=== PATIENT | female | born 1985 | race Caucasian/White ===

== ENCOUNTER 2016-10-24 21:11 | Inpatient (IN) | payer BC ==
[2016-10-24] MEDS ORDERED: CALCIUM GLUCONATE 10% 1 GM/10 ML VIAL IV PUSH PRN (22:30)
[2016-10-24] MEDS ORDERED: SODIUM CHLORIDE 0.9% FLUSH 5 ML FLUSH IV PRN (22:30)
[2016-10-24] MEDS ORDERED: ZOLPIDEM TARTRATE 5 MG TAB PO PRN (22:30)
[2016-10-24] MEDS ORDERED: NIFEdipine 10 MG CAP PO PRN ×3 (22:30→23:15)
[2016-10-24] MEDS ORDERED: hydrALAZINE HCL 20 MG/ML VIAL IV PUSH PRN (22:30)
[2016-10-24] MEDS ORDERED: LABETALOL HCL 100 MG/20 ML VIAL IV PUSH PRN (22:30)
[2016-10-24 22:46] VITALS: BP 168/99; PULSE 89
--- NOTE | 2016-10-24 22:56 | HHI.HP ---
HPI Chief Complaint High blood pressure noted tonight when she went publics took her blood pressure Date Seen: Oct 24, 2016 Time Seen: 22:30 Travel History International Travel<30 Days: No Contact w/Intl Traveler<30Days: No Known Affected Area: No History of Present Illness HPI 31-year-old white female at 33 weeks with twins who sees Dr. Rai for care, she has had some blood pressure the last couple weeks in the office tonight went by [employer] and took her blood pressure was 190/120, here on OB ED blood pressures 160 / 90s she has no history of hypertension, although she does have a history of is type 1 diabetes for 20 years and is on insulin pump and checks her blood sugar dozen times a day or more our blood check here was to 238 and she says that her fastings are usually around 100. She has had a headache all day today and yesterday had visual changes with she describes a kaleidoscope in her vision that's not today she denies abdominal pain leakage of fluid or of bleeding, baby is are active, heart rate tracings are reactive and she is breana every 3-6 minutes but did not even realize that Weeks Gestation: 33 Para: 0 : 1 History Past Medical History Narrative Medical Insulin-dependent diabetes on an insulin pump Social History Alcohol Use: No Tobacco Use: No Substance Abuse: No Allergies-Medications (Allergen,Severity, Reaction): Uncoded Allergies: no knownallergy (Allergy, Unknown, 10/24/16) Review of Systems General / Constitutional: No: Fever, Weight Gain, Chills, Other Eyes: Visual changes, No: Diploplia, Blurred Vision, Pain, Photophobia HENT: Headaches, No: Vertigo, Lightheadedness Cardiovascular: No: Irregular Rhythm, Chest Pain or Discomfort, Palpitations, Tachycardia, Syncope, Varicosities, Edema, Cyanosis Respiratory: No: Cough, Short of Breath, Other Gastrointestinal: No: Nausea, Vomiting, Diarrhea Genitourinary: Discharge, No: Decreased Urinary Output, Oliguria Musculoskeletal: No: Limited ROM, Weakness, Cramping, Edema, Pain Skin: No Rash, No Itching, No Dryness, No Lumps, No Change in Pigmentation, No Change in Nails, No Alopecia, No Lesions Neurologic: No: Weakness, Dizziness, Syncope, Focal Abnormalities, Coordination Problem, Headache, Slurred Speech, Seizures Psychiatric: No: Depression, Suicidal Ideations, Homicidal Ideation Endocrine: No: Heat Intolerance, Cold Intolerance, Polydipsia, Polyuria, Other Physical Exam Narrative GENERAL: Well-nourished, well-developed patient. SKIN: Warm and dry. HEAD: Normocephalic and atraumatic. EYES: No scleral icterus. No injection or drainage. ENT: No nasal drainage noted. Mucous membranes pink. Airway patent. NECK: Supple, trachea midline. No JVD. CARDIOVASCULAR: Regular rate and rhythm without murmurs, gallops, or rubs. RESPIRATORY: Breath sounds equal bilaterally. No accessory muscle use. BREASTS: Bilateral exam showed no masses , no retractions, no nipple discharge. ABDOMEN/GI: Abdomen soft, non-tender, bowel sounds present, no rebound, no guarding Gravid to [40-] weeks size Fundal Height: [40 cm [she has twins-] GENITOURINARY: External Genitalia: intact and normal in appearance Speculum done tonight fibronectin done and is pending now she has a yellow purulent discharge at the cervix and posterior fornix wet prep is done which is also pending now Cervix: [Posterior with purulent. Discharge. Areola-] Dilatation: [Closed-] Effacement: [-] Thick Station: [-3] Presentation: [-] Patient states that both babies were head down recent ultrasound Membranes: [intact ] Uterine Contractions: [-q 3-6 min] FHT's: Category: [1-] Baseline: [133 /140-] Reactive: [yes-] Variability: [mod-] Decels: [none-] EXTREMITIES: No cyanosis 3+ pitting pretibial edema. BACK: Nontender without obvious deformity. No CVA tenderness. NEUROLOGICAL: Awake and alert. Motor and sensory grossly within normal limits. Five out of 5 muscle strength in all muscle groups. Normal speech. 3+ DTRs Caprini VTE Risk Assessment Caprini VTE Risk Assessment: No/Low Risk (score <= 1) Caprini Risk Assessment Model Point Value = 1 Point Value = 2 Point Value = 3 Point Value = 5 Age 41-60 Minor surgery BMI > 25 kg/m2 Swollen legs Varicose veins or History of unexplained or recurrent spontaneous Oral contraceptives or hormone replacement Sepsis (< 1 month) Serious lung disease, including pneumonia (< 1 month) Abnormal pulmonary function Acute myocardial infarction Congestive heart failure (< 1 month) History of inflammatory bowel disease Medical patient at bed rest Age 61-74 Arthroscopic surgery Major open surgery (> 45 min) Laparoscopic surgery (> 45 min) Malignancy Confined to bed (> 72 hours) Immobilizing plaster cast Central venous access Age >= 75 History of VTE Family history of VTE Factor V Leiden Prothrombin [id number] Lupus anticoagulant Anticardiolipin antibodies Elevated serum homocysteine Heparin-induced thrombocytopenia Other congenital or acquired thrombophilia Stroke (< 1 month) Elective arthroplasty Hip, pelvis, or leg fracture Acute spinal cord injury (< 1 month) Prophylaxis Regimen Total Risk Factor Score Risk Level Prophylaxis Regimen 0-1 Low Early ambulation 2 Moderate Order ONE of the following: *Sequential Compression Device (SCD) *Heparin 5000 units SQ BID 3-4 Higher Order ONE of the following medications: *Heparin 5000 units SQ TID *Enoxaparin/Lovenox 40 mg SQ daily (WT < 150 kg, CrCl > 30 mL/min) *Enoxaparin/Lovenox 30 mg SQ daily (WT < 150 kg, CrCl > 10-29 mL/min) *Enoxaparin/Lovenox 30 mg SQ BID (WT < 150 kg, CrCl > 30 mL/min) AND/OR *Sequential Compression Device (SCD) 5 or more Highest Order ONE of the following medications: *Heparin 5000 units SQ TID (Preferred with Epidurals) *Enoxaparin/Lovenox 40 mg SQ daily (WT < 150 kg, CrCl > 30 mL/min) *Enoxaparin/Lovenox 30 mg SQ daily (WT < 150 kg, CrCl > 10-29 mL/min) *Enoxaparin/Lovenox 30 mg SQ BID (WT < 150 kg, CrCl > 30 mL/min) AND *Sequential Compression Device (SCD) Data Data Orders Orders Admit To Inpatient (10/24/16 ) Vital Signs (Adult) Q5MX4,Q15MX4,Q30MX2,Q1H (10/24/16 22:24) Resp Pulse Oximetry (10/24/16 ) Activity Bed Rest (10/24/16 22:24) Intake + Output Q1H (10/24/16 22:24) Notify Parameters (10/24/16 22:24) Heart CONTINUOUS (10/24/16 22:24) Urinary Catheter Management BENJI.Q8H (10/24/16 22:24) ^ Check Deep Tendon Reflexes Q1H (10/24/16 22:24) Diet Liquid (10/25/16 Breakfast) Sodium Chloride 0.9% Flush (Ns Flush) (10/24/16 22:30) Sodium Chloride 0.9% Flush (Ns Flush) (10/25/16 09:00) Nifedipine (Procardia) (10/24/16 22:30) Nifedipine (Procardia) (10/24/16 22:45) Nifedipine (Procardia) (10/24/16 23:15) Labetalol Inj (Trandate Inj) (10/24/16 22:30) Hydralazine Inj (Apresoline Inj) (10/24/16 22:30) Betamethasone Inj (Celestone Soluspan In (10/24/16 22:30) Calcium Gluconate Inj (Calcium Gluconate (10/24/16 22:30) Acetaminophen (Tylenol) (10/24/16 22:30) Ondansetron Inj (Zofran Inj) (10/24/16 22:30) Zolpidem (Ambien) (10/24/16 22:30) Cbc No Diff, Includes Plts (10/24/16 22:24) Comprehensive Metabolic Panel (10/24/16 22:24) Uric Acid (10/24/16 22:24) Urinalysis - C+S If Indicated (10/24/16 22:24) Total Protein 24hr Urine (10/24/16 22:24) Creatinine 24 Hr Urine (10/24/16 22:24) Fentanyl Inj (Fentanyl Inj) (10/24/16 22:30) Assessment/Plan Assessment and Plan Patient is 31-year-old white female at 33 weeks twin gestation who presents with elevated blood pressures noted to the outside hospital today. Here on OB ED her blood pressures 160/90 consistently. She has no history of high blood pressure except for the last couple visits in the office, her urine dip shows 4+ protein 4+ glucose finger stick blood sugar 238. She is a type I diabetic on an insulin pump. She has 3+ pitting edema and 3+ DTRs, heart rates are reactive and she is breana every 3-6 minutes but doesn't feel them and is unaware of that. fibronectin done and is pending at this time wet prep same, she has a purulent cervicitis. Impression-33 week twin gestation with preeclampsia Type 1 diabetes is not well controlled Threatened labor with twin gestation Cervicitis Plan--admission to hospital for 24-hour urine protein, PIH lab, OB ultrasound, IM steroids betamethasone, antibiotics for cervicitis Tocolyse labor initially with IV fluid sedation but very likely will need of IV magnesium We will call and discuss case with her primary OB doctor Dr. Cecelia Casarez,Ishaan Falcon II, MD Oct 24, 2016 22:47
[2016-10-24] MEDS: BETAMETHASONE SOD PHOS/ACETATE SUSP 30 MG/5 ML VIAL IM SCH (23:43)
[2016-10-24 23:51] VITALS: BP 170/98; PULSE 85
[2016-10-25] VITALS (32 sets, daily range): BP systolic 133–176; BP diastolic 70–98; PULSE 78–111; RESP 16–18; TEMP 98–98.9
[2016-10-25] MEDS: ONDANSETRON HCL 4 MG/2 ML VIAL IV PRN (00:35)
[2016-10-25] MEDS ORDERED: NIFEdipine 10 MG CAP PO ONE (04:45)
[2016-10-25 05:20] LABS: HEMATOCRIT 39.9 % (35.0-46.0); MEAN CELL VOLUME 89.2 FL (80.0-100.0); MEAN CORPUSCULAR HGB CONC 33.6 % (32.0-36.0); PLATELET COUNT 214 TH/MM3 (150-450); RED BLOOD COUNT 4.48 MIL/MM3 (4.00-5.30); RED CELL DISTRIBUTION WIDTH 13.2 % (11.6-17.2); REVIEW FLAG FINAL; WHITE BLOOD COUNT 9.4 TH/MM3 (4.0-11.0)
[2016-10-25 06:39] LABS: BACTERIA, URINE RARE /hpf; BLOOD, URINE SMALL (NEG); COMMENT (UR) CULTURE INDICATED; CULTURE IF INDICATED CULTURE INDICATED; GLUCOSE,URINE 1000 mg/dL (NEG); HYALINE CAST, URINE 20 /lpf (RARE); KETONE, URINE NEG (NEG); MUCUS URINE FEW /lpf (OCC); NITRITE,URINE NEG (NEG); PH, URINE 6.5 (5.0-8.5); SQUAMOUS EPITHELIAL CELL URINE 1 /hpf (0-5); URINE COLOR YELLOW (YELLW/STRAW)
[2016-10-25 06:54] LABS: BLOOD UREA NITROGEN 22 MG/DL (7-18); GLOMERULAR FILTRATION RATE 79 ML/MIN (>89); URIC ACID 7.6 MG/DL (2.6-6.0)
[2016-10-25 06:55] LABS: ALKALINE PHOSPHATASE 218 U/L (45-117); ALT (GPT) 33 U/L (10-53); ANION GAP 11 MEQ/L (5-15); AST (GOT) 37 U/L (15-37); BICARBONATE 20.2 MEQ/L (21.0-32.0); CHLORIDE 105 MEQ/L (98-107); POTASSIUM 4.1 MEQ/L (3.5-5.1); SODIUM (NA) 136 MEQ/L (136-145); TOTAL BILIRUBIN ADULT 0.3 MG/DL (0.2-1.0)
--- NOTE | 2016-10-25 08:08 | HHI.HP ---
HPI Chief Complaint headache and hypertension Date Seen: Oct 24, 2016 Time Seen: 23:59 Travel History International Travel<30 Days: No Contact w/Intl Traveler<30Days: No Known Affected Area: No History of Present Illness HPI doing well at 33 weeks with Hypertension. She had BP x2 of 170/90. she had headache. She has had some visual change with spots worse today. Weeks Gestation: 33 Para: 0 : 1 History Past Medical History Narrative Medical diabetic since 12 yo on insulin pump Medical History: Denies Significant Hx Past Surgical History Surgical History: No Previous Surgery Family History Family History: Negative Social History Alcohol Use: No Tobacco Use: No Substance Abuse: No Allergies-Medications (Allergen,Severity, Reaction): Coded Allergies: No Known Allergies (Unverified , 10/24/16) Narrative Medication insulin Review of Systems Except as stated in HPI: all other systems reviewed are Neg Physical Exam Vital Signs Date Time Temp Pulse Resp B/P (MAP) Pulse Ox O2 Delivery O2 Flow Rate FiO2 10/25/16 07:45 18 10/25/16 07:32 86 141/85 (103) 10/25/16 06:30 84 147/73 (97) 10/25/16 06:15 98.9 18 10/25/16 06:00 83 145/79 (101) 10/25/16 05:45 18 10/25/16 05:30 83 154/80 (104) 10/25/16 05:12 18 10/25/16 05:00 80 153/83 (106) 10/25/16 04:45 18 10/25/16 04:30 87 140/75 (96) 10/25/16 04:00 79 133/70 (91) 10/25/16 03:30 82 134/72 (92) 10/25/16 03:00 89 141/77 (98) 10/25/16 02:30 85 144/74 (97) 10/25/16 02:00 91 155/89 (111) 10/25/16 01:30 95 163/90 (114) 10/25/16 01:23 97 161/80 (107) 10/25/16 01:00 105 174/96 (122) 10/25/16 00:30 87 156/93 (114) 10/25/16 00:24 99 165/98 (120) 10/25/16 00:14 111 169/93 (118) 10/25/16 00:00 78 170/90 (116) 10/24/16 23:51 85 170/98 (122) 10/24/16 22:46 89 168/99 (122) Narrative GENERAL: Well-nourished, well-developed patient. SKIN: Warm and dry. HEAD: Normocephalic and atraumatic.. NECK: Supple, trachea midline. No JVD. CARDIOVASCULAR: Regular rate and rhythm without murmurs, gallops, or rubs. RESPIRATORY: Breath sounds equal bilaterally. No accessory muscle use. BREASTS: Bilateral exam showed no masses , no retractions, no nipple discharge. ABDOMEN/GI: Abdomen soft, non-tender, bowel sounds present, no rebound, no guarding Gravid to 40 weeks size Fundal Height: [-] GENITOURINARY: External Genitalia: intact and normal in appearance BUS glands: [-] Cervix: Closed Dilatation: [-] Effacement: [-] Station: [-] Presentation: [-] Membranes: [intact or ruptured] Uterine Contractions: [-] FHT's: Category: 1 Baseline: [-] Reactive: [-] Variability: [-] Decels: [-] EXTREMITIES: No cyanosis or edema. BACK: Nontender without obvious deformity. No CVA tenderness. NEUROLOGICAL: Awake and alert. Motor and sensory grossly within normal limits. Five out of 5 muscle strength in all muscle groups. Normal speech. Caprini VTE Risk Assessment Caprini VTE Risk Assessment: No/Low Risk (score <= 1) Caprini Risk Assessment Model Point Value = 1 Point Value = 2 Point Value = 3 Point Value = 5 Age 41-60 Minor surgery BMI > 25 kg/m2 Swollen legs Varicose veins or History of unexplained or recurrent spontaneous Oral contraceptives or hormone replacement Sepsis (< 1 month) Serious lung disease, including pneumonia (< 1 month) Abnormal pulmonary function Acute myocardial infarction Congestive heart failure (< 1 month) History of inflammatory bowel disease Medical patient at bed rest Age 61-74 Arthroscopic surgery Major open surgery (> 45 min) Laparoscopic surgery (> 45 min) Malignancy Confined to bed (> 72 hours) Immobilizing plaster cast Central venous access Age >= 75 History of VTE Family history of VTE Factor V Leiden Prothrombin [id number] Lupus anticoagulant Anticardiolipin antibodies Elevated serum homocysteine Heparin-induced thrombocytopenia Other congenital or acquired thrombophilia Stroke (< 1 month) Elective arthroplasty Hip, pelvis, or leg fracture Acute spinal cord injury (< 1 month) Prophylaxis Regimen Total Risk Factor Score Risk Level Prophylaxis Regimen 0-1 Low Early ambulation 2 Moderate Order ONE of the following: *Sequential Compression Device (SCD) *Heparin 5000 units SQ BID 3-4 Higher Order ONE of the following medications: *Heparin 5000 units SQ TID *Enoxaparin/Lovenox 40 mg SQ daily (WT < 150 kg, CrCl > 30 mL/min) *Enoxaparin/Lovenox 30 mg SQ daily (WT < 150 kg, CrCl > 10-29 mL/min) *Enoxaparin/Lovenox 30 mg SQ BID (WT < 150 kg, CrCl > 30 mL/min) AND/OR *Sequential Compression Device (SCD) 5 or more Highest Order ONE of the following medications: *Heparin 5000 units SQ TID (Preferred with Epidurals) *Enoxaparin/Lovenox 40 mg SQ daily (WT < 150 kg, CrCl > 30 mL/min) *Enoxaparin/Lovenox 30 mg SQ daily (WT < 150 kg, CrCl > 10-29 mL/min) *Enoxaparin/Lovenox 30 mg SQ BID (WT < 150 kg, CrCl > 30 mL/min) AND *Sequential Compression Device (SCD) Data Data Vital Signs Reviewed: Yes Orders Orders Admit To Inpatient (10/24/16 ) Vital Signs (Adult) Q5MX4,Q15MX4,Q30MX2,Q1H (10/24/16 22:24) Resp Pulse Oximetry (10/24/16 ) Activity Bed Rest (10/24/16 22:24) Intake + Output Q1H (10/24/16 22:24) Notify Parameters (10/24/16 22:24) Heart CONTINUOUS (10/24/16 22:24) Urinary Catheter Management BENJI.Q8H (10/24/16 22:24) ^ Check Deep Tendon Reflexes Q1H (10/24/16 22:24) Sodium Chloride 0.9% Flush (Ns Flush) (10/24/16 22:30) Sodium Chloride 0.9% Flush (Ns Flush) (10/25/16 09:00) Nifedipine (Procardia) (10/24/16 22:30) Nifedipine (Procardia) (10/24/16 22:45) Nifedipine (Procardia) (10/24/16 23:15) Labetalol Inj (Trandate Inj) (10/24/16 22:30) Hydralazine Inj (Apresoline Inj) (10/24/16 22:30) Betamethasone Inj (Celestone Soluspan In (10/24/16 22:30) Calcium Gluconate Inj (Calcium Gluconate (10/24/16 22:30) Acetaminophen (Tylenol) (10/24/16 22:30) Ondansetron Inj (Zofran Inj) (10/24/16 22:30) Zolpidem (Ambien) (10/24/16 22:30) Cbc No Diff, Includes Plts (10/24/16 22:24) Comprehensive Metabolic Panel (10/24/16 22:24) Uric Acid (10/24/16 22:24) Urinalysis - C+S If Indicated (10/24/16 22:24) Total Protein 24hr Urine (10/24/16 22:24) Creatinine 24 Hr Urine (10/24/16 22:24) Fentanyl Inj (Fentanyl Inj) (10/24/16 22:30) Ob (2e) Additional Admit Info (10/24/16 22:32) Nifedipine (Procardia) (10/25/16 04:45) Wet Prep Profile (10/25/16 23:05) Fibronectin (10/24/16 23:05) Type And Screen (10/25/16 23:05) Urine Culture (10/24/16 22:00) Diet Regular Basic (10/25/16 Breakfast) Labs Laboratory Tests Test 10/24/16 22:00 10/24/16 23:05 10/24/16 23:35 Urine Color YELLOW Urine Turbidity CLEAR Urine pH 6.5 Urine Specific [place] 1.023 Urine Protein GREATER THAN 600 Urine Glucose (UA) 1000 Urine Ketones NEG Urine Occult Blood SMALL Urine Nitrite NEG Urine Bilirubin NEG Urine Urobilinogen LESS THAN 2.0 Urine Leukocyte Esterase NEG Urine RBC 1 Urine WBC 8 Urine Squamous Epithelial Cells 1 Urine Bacteria RARE Urine Hyaline Casts 20 Urine Mucus FEW Microscopic Urinalysis Comment CULTURE INDICATED White Blood Count 9.4 Red Blood Count 4.48 Hemoglobin 13.4 Hematocrit 39.9 Mean Corpuscular Volume 89.2 Mean Corpuscular Hemoglobin 30.0 Mean Corpuscular Hemoglobin Concent 33.6 Red Cell Distribution Width 13.2 Platelet Count 214 Mean Platelet Volume 10.5 Fibronectin POSITIVE Blood Urea Nitrogen 22 Creatinine 0.85 Random Glucose 215 Total Protein 6.1 Albumin 2.0 Calcium Level 8.1 Uric Acid 7.6 Alkaline Phosphatase 218 Aspartate Amino Transf (AST/SGOT) 37 Alanine Aminotransferase (ALT/SGPT) 33 Total Bilirubin 0.3 Sodium Level 136 Potassium Level 4.1 Chloride Level 105 Carbon Dioxide Level 20.2 Anion Gap 11 Estimat Glomerular Filtration Rate 79 Date/Time Source Procedure Growth Status 10/24/16 22:00 Urine Clean Catch Urine Culture Pending Received Assessment/Plan Problem List: (1) 33 weeks gestation of ICD Codes: Z3A.33 - 33 weeks gestation of (2) Dichorionic diamniotic twin gestation ICD Codes: O30.049 - Twin , dichorionic/diamniotic, unspecified trimester (3) Hypertension affecting in third trimester ICD Codes: O16.3 - Unspecified maternal hypertension, third trimester Assessment and Plan Patient is 31-year-old white female at 33 weeks twin gestation who presents with elevated blood pressures noted to the outside hospital today. Here on OB ED her blood pressures 160/90 consistently. She has no history of high blood pressure except for the last couple visits in the office, her urine dip shows 4+ protein 4+ glucose finger stick blood sugar 238. She is a type I diabetic on an insulin pump. She has 3+ pitting edema and 3+ DTRs, heart rates are reactive and she is breana every 3-6 minutes but doesn't feel them and is unaware of that. fibronectin done and is pending at this time wet prep same, she has a purulent cervicitis. Impression-33 week twin gestation with preeclampsia Type 1 diabetes is not well controlled Threatened labor with twin gestation Cervicitis Plan--admission to hospital for 24-hour urine protein, PIH lab, OB ultrasound, IM steroids betamethasone, antibiotics for cervicitis Tocolyse labor initially with IV fluid sedation but very likely will need of IV magnesium We will call and discuss case with her primary OB doctor Dr. Cecelia Amador,Tacho Vora MD Oct 25, 2016 08:08
--- NOTE | 2016-10-25 08:15 | PD.OB.ANTE ---
Subjective Diagnosis: (1) 33 weeks gestation of Diagnosis: Principal (2) Dichorionic diamniotic twin gestation (3) Hypertension affecting in third trimester Diagnosis: Principal (4) Diabetes mellitus Objective Vital Signs Vital Signs Date Time Temp Pulse Resp B/P (MAP) Pulse Ox O2 Delivery O2 Flow Rate FiO2 10/25/16 07:45 18 10/25/16 07:32 86 141/85 (103) 10/25/16 06:30 84 147/73 (97) 10/25/16 06:15 98.9 18 10/25/16 06:00 83 145/79 (101) 10/25/16 05:45 18 10/25/16 05:30 83 154/80 (104) 10/25/16 05:12 18 10/25/16 05:00 80 153/83 (106) 10/25/16 04:45 18 10/25/16 04:30 87 140/75 (96) 10/25/16 04:00 79 133/70 (91) 10/25/16 03:30 82 134/72 (92) 10/25/16 03:00 89 141/77 (98) 10/25/16 02:30 85 144/74 (97) 10/25/16 02:00 91 155/89 (111) 10/25/16 01:30 95 163/90 (114) 10/25/16 01:23 97 161/80 (107) 10/25/16 01:00 105 174/96 (122) 10/25/16 00:30 87 156/93 (114) 10/25/16 00:24 99 165/98 (120) 10/25/16 00:14 111 169/93 (118) 10/25/16 00:00 78 170/90 (116) 10/24/16 23:51 85 170/98 (122) 10/24/16 22:46 89 168/99 (122) Lab & Micro Results Test 10/24/16 22:00 10/24/16 23:05 10/24/16 23:35 Urine Color YELLOW Urine Turbidity CLEAR Urine pH 6.5 Urine Specific [place] 1.023 Urine Protein GREATER THAN 600 mg/dL Urine Glucose (UA) 1000 mg/dL Urine Ketones NEG mg/dL Urine Occult Blood SMALL Urine Nitrite NEG Urine Bilirubin NEG Urine Urobilinogen LESS THAN 2.0 MG/DL Urine Leukocyte Esterase NEG Urine RBC 1 /hpf Urine WBC 8 /hpf Urine Squamous Epithelial Cells 1 /hpf Urine Bacteria RARE /hpf Urine Hyaline Casts 20 /lpf Urine Mucus FEW /lpf Microscopic Urinalysis Comment CULTURE INDICATED White Blood Count 9.4 TH/MM3 Red Blood Count 4.48 MIL/MM3 Hemoglobin 13.4 GM/DL Hematocrit 39.9 % Mean Corpuscular Volume 89.2 FL Mean Corpuscular Hemoglobin 30.0 PG Mean Corpuscular Hemoglobin Concent 33.6 % Red Cell Distribution Width 13.2 % Platelet Count 214 TH/MM3 Mean Platelet Volume 10.5 FL Fibronectin POSITIVE Blood Urea Nitrogen 22 MG/DL Creatinine 0.85 MG/DL Random Glucose 215 MG/DL Total Protein 6.1 GM/DL Albumin 2.0 GM/DL Calcium Level 8.1 MG/DL Uric Acid 7.6 MG/DL Alkaline Phosphatase 218 U/L Aspartate Amino Transf (AST/SGOT) 37 U/L Alanine Aminotransferase (ALT/SGPT) 33 U/L Total Bilirubin 0.3 MG/DL Sodium Level 136 MEQ/L Potassium Level 4.1 MEQ/L Chloride Level 105 MEQ/L Carbon Dioxide Level 20.2 MEQ/L Anion Gap 11 MEQ/L Estimat Glomerular Filtration Rate 79 ML/MIN Date/Time Source Procedure Growth Status 10/24/16 22:00 Urine Clean Catch Urine Culture Pending Received Physical Exam GENERAL: Well-nourished, well-developed patient. CARDIOVASCULAR: Regular rate and rhythm without murmurs, gallops, or rubs. RESPIRATORY: Breath sounds equal bilaterally. No accessory muscle use. ABDOMEN/GI: Abdomen soft, non-tender. Fundus: [-] GENITOURINARY: External Genitalia: intact and normal in appearance Cervix: [-] Dilatation: cl Effacement: [-] Station: vtx Presentation: [-] Membranes: intact Uterine Contractions: [-] FHT's: Category: 1 Baseline: [-] Reactive: [-] Variability: [-] Decels: [-] EXTREMITIES: No cyanosis or edema, non-tender, without signs of DVT. Assessment and Plan Problem List: (1) 33 weeks gestation of ICD Codes: Z3A.33 - 33 weeks gestation of (2) Dichorionic diamniotic twin gestation ICD Codes: O30.049 - Twin , dichorionic/diamniotic, unspecified trimester (3) Hypertension affecting in third trimester ICD Codes: O16.3 - Unspecified maternal hypertension, third trimester Assessment and Plan Patient is 31-year-old white female at 33 weeks twin gestation who presents with elevated blood pressures noted to the outside hospital today. Here on OB ED her blood pressures 160/90 consistently. She has no history of high blood pressure except for the last couple visits in the office, her urine dip shows 4+ protein 4+ glucose finger stick blood sugar 238. She is a type I diabetic on an insulin pump. She has 3+ pitting edema and 3+ DTRs, heart rates are reactive and she is breana every 3-6 minutes but doesn't feel them and is unaware of that. fibronectin done and is pending at this time wet prep same, she has a purulent cervicitis. Impression-33 week twin gestation with preeclampsia Type 1 diabetes is not well controlled Threatened labor with twin gestation Cervicitis Plan--admission to hospital for 24-hour urine protein, PIH lab, OB ultrasound, IM steroids betamethasone, antibiotics for cervicitis Tocolyse labor initially with IV fluid sedation but very likely will need of IV magnesium We will call and discuss case with her primary OB doctor Dr. Cecelia Amador,Tacho Vora MD Oct 25, 2016 08:15
[2016-10-25] MEDS: SODIUM CHLORIDE 0.9% FLUSH 5 ML FLUSH IV SCH ×2 (09:00→21:00)
[2016-10-25] MEDS: ACETAMINOPHEN 325 MG TAB PO PRN ×2 (09:41→17:21)
[2016-10-25 23:00] LABS: CREAT 24 TIMED 208.7 MG/DL
[2016-10-25] MEDS: BETAMETHASONE SOD PHOS/ACETATE SUSP 30 MG/5 ML VIAL IM SCH (23:45)
[2016-10-26] VITALS (201 sets, daily range): BP systolic 125–182; BP diastolic 68–102; PULSE 85–140; RESP 16–20; TEMP 97.9–98.7; O2SAT 95–99
[2016-10-26] MEDS ORDERED: MAGNESIUM HYDROXIDE SUSP 30 ML CUP PO ONE (00:30)
[2016-10-26] MEDS ORDERED: CALCIUM GLUCONATE 10% 1 GM/10 ML VIAL IV PRN (00:30)
[2016-10-26] MEDS ORDERED: LACTATED RINGER'S 1000 ML INJ 1,000 ML IV SCH (00:30)
[2016-10-26] MEDS ORDERED: LIDOCAINE 2% JELLY 30 ML TUBE ONE (00:32)
[2016-10-26] MEDS: MAGNESIUM SULFATE 40 GM PREMIX 1,000 ML IV SCH ×2 (00:45→21:50)
--- NOTE | 2016-10-26 06:32 | PD.OB.ANTE ---
Subjective Diagnosis: (1) 33 weeks gestation of Diagnosis: Principal (2) Dichorionic diamniotic twin gestation (3) Hypertension affecting in third trimester Diagnosis: Principal (4) Diabetes mellitus (5) Severe pre-eclampsia complicating childbirth Objective Vital Signs Vital Signs Date Time Temp Pulse Resp B/P (MAP) Pulse Ox O2 Delivery O2 Flow Rate FiO2 10/26/16 06:05 86 10/26/16 06:01 18 10/26/16 06:00 87 10/26/16 06:00 91 154/79 (104) 10/26/16 05:12 16 10/26/16 05:00 89 10/26/16 05:00 87 151/83 (105) 10/26/16 04:08 16 10/26/16 04:05 102 10/26/16 04:00 103 10/26/16 04:00 94 159/89 (112) 10/26/16 03:03 16 10/26/16 03:00 96 165/73 (103) 10/26/16 03:00 94 10/26/16 02:19 16 10/26/16 02:10 95 10/26/16 02:05 113 10/26/16 02:00 95 10/26/16 02:00 96 161/86 (111) 10/26/16 01:24 16 10/26/16 01:00 100 165/98 (120) 10/26/16 01:00 97.9 10/26/16 01:00 18 10/26/16 00:57 112 162/85 (110) 10/25/16 21:51 18 10/25/16 21:36 91 154/76 (102) 10/25/16 20:56 98.2 10/25/16 20:00 18 10/25/16 20:00 98.0 10/25/16 19:29 91 156/90 (112) 10/25/16 15:56 99 156/72 (100) 10/25/16 15:51 18 10/25/16 15:50 94 176/95 (122) 10/25/16 15:20 18 10/25/16 11:51 94 16 140/71 (94) 10/25/16 07:45 18 10/25/16 07:32 86 141/85 (103) 9/15/17 06:30 84 147/73 (97) Lab & Micro Results Test 10/25/16 21:30 Urine Total Volume 24 Hours 525 ML Urine Creatinine 24 Hour 1.09 GM/24HR Urine Total Protein 24 Hour 6085 MG/24HR Date/Time Source Procedure Growth Status 10/24/16 22:00 Urine Clean Catch Urine Culture Pending Received Physical Exam GENERAL: Well-nourished, well-developed patient. CARDIOVASCULAR: Regular rate and rhythm without murmurs, gallops, or rubs. RESPIRATORY: Breath sounds equal bilaterally. No accessory muscle use. ABDOMEN/GI: Abdomen soft, non-tender. Fundus: [-] GENITOURINARY: External Genitalia: intact and normal in appearance Cervix: [-] Dilatation: 1 Effacement: [-] Station: [-] Presentation: [-] Membranes: [-] Uterine Contractions: [-] FHT's: Category: 1 Baseline: [-] Reactive: [-] Variability: [-] Decels: [-] EXTREMITIES: No cyanosis or edema, non-tender, without signs of DVT. Assessment and Plan Problem List: (1) 33 weeks gestation of ICD Codes: Z3A.33 - 33 weeks gestation of (2) Dichorionic diamniotic twin gestation ICD Codes: O30.049 - Twin , dichorionic/diamniotic, unspecified trimester (3) Hypertension affecting in third trimester ICD Codes: O16.3 - Unspecified maternal hypertension, third trimester (4) Diabetes mellitus ICD Codes: E11.9 - Type 2 diabetes mellitus without complications Qualifiers: Assessment and Plan Patient is 31-year-old white female at 33 weeks twin gestation who presents with elevated blood pressures noted to the outside hospital today. Here on OB ED her blood pressures 160/90 consistently. She has no history of high blood pressure except for the last couple visits in the office, her urine dip shows 4+ protein 4+ glucose finger stick blood sugar 238. She is a type I diabetic on an insulin pump. She has 3+ pitting edema and 3+ DTRs, heart rates are reactive and she is breana every 3-6 minutes but doesn't feel them and is unaware of that. fibronectin done and is pending at this time wet prep same, she has a purulent cervicitis. Impression-33 week twin gestation with preeclampsia Type 1 diabetes is not well controlled Threatened labor with twin gestation Cervicitis Patient has 24 hour protein of 6000 with severe preclampsia and needs delivery. Twins are VTX/VTX and has been offered CS or induction Tacho Amador MD Oct 26, 2016 06:32
[2016-10-26 07:18] LABS: AUTOMATED NEUTROPHIL # 11.2 TH/MM3 (1.8-7.7); BASOPHIL % 0.2 % (0.0-2.0); HEMATOCRIT 42.7 % (35.0-46.0); LYMPH % 15.5 % (9.0-44.0); LYMPHOCYTE # 2.1 TH/MM3 (1.0-4.8); MEAN CELL VOLUME 89.3 FL (80.0-100.0); MEAN CORPUSCULAR HEMOGLOBIN 29.5 PG (27.0-34.0); MONO % 2.8 % (0.0-8.0); NEUT % 81.5 % (16.0-70.0); PLATELET COUNT 224 TH/MM3 (150-450); RED BLOOD COUNT 4.79 MIL/MM3 (4.00-5.30); RED CELL DISTRIBUTION WIDTH 13.4 % (11.6-17.2); WHITE BLOOD COUNT 13.8 TH/MM3 (4.0-11.0)
[2016-10-26 07:28] LABS: HEMO FLAGS AUTO DIFF
[2016-10-26 07:39] LABS: ANION GAP 13 MEQ/L (5-15); AST (GOT) 49 U/L (15-37); BICARBONATE 17.7 MEQ/L (21.0-32.0); BLOOD UREA NITROGEN 22 MG/DL (7-18); CHLORIDE 102 MEQ/L (98-107); GLOMERULAR FILTRATION RATE 75 ML/MIN (>89); POTASSIUM 4.3 MEQ/L (3.5-5.1); SODIUM (NA) 133 MEQ/L (136-145)
[2016-10-26 07:40] LABS: ALT (GPT) 39 U/L (10-53)
[2016-10-26 07:42] LABS: ALKALINE PHOSPHATASE 217 U/L (45-117); TOTAL BILIRUBIN ADULT 0.3 MG/DL (0.2-1.0)
[2016-10-26] MEDS: SODIUM CHLORIDE 0.9% FLUSH 5 ML FLUSH IV SCH (08:41)
[2016-10-26] MEDS ORDERED: NIFEdipine 10 MG CAP ONE ×2 (08:53→19:21)
[2016-10-26 09:01] LABS: SCAN/DIFF AUTO DIFF CONFIRMED
--- NOTE | 2016-10-26 09:26 | HHI.PR ---
Addendum to Inpatient Note Addendum Reason: Additional Documentation Additional Information Consult Maternal Hx: 31 y/o, G 1 P 0 , female at 33.3weeks gestation with diagnosis of PIH, Pre- Eclampsia, Type 1 Diabetes, Cervicitis Mother admitted to L & D secondary to increased blood pressure Maternal Medications: PNV, Iron, Antibiotics, Magnesium Sulfate Betamethasone 10/24 and 10/25 Social: Marital status: Resides locally Family Hx: Mother reports no genetic or inherited conditions. Substance Abuse: Denies Discussion: Nurse Practitioner met with mother and father regarding threatened delivery at 33.3 weeks gestation secondary to Pre-Eclampsia This consultation included generalized care of the baby in the NICU, common problems, complications. We reviewed the expectations with delivery of an infant under these circumstances including delivery room atmosphere, infant resuscitation and stabilization. Also included in this review is the admission process to the NICU, including possible procedures such as intubation and placement of umbilical catheter(s). Additionally, there was a discussion of the disease processes that may affect an of this gestation, including but not limited to respiratory distress, infection and nutritional concerns. Discussion detailed various forms of respiratory support for immature lungs including use of surfactant and placement of umbilical catheters and/or PICC lines. Discussion focused on CPAP and/or ventilator support as needed for an of this gestation. There was a review of nutritional support challenges including IV and gavage feeding. There was discussion regarding of possible feeding intolerances and intestinal complications. Breast feeding and early breast milk pumping was strongly encouraged. Explained that is at risk for hyperbilirubinemia and may require treatment with phototherapy. Discussed mother's Type 1 Diabetes and how this can effect the baby, including transient hypoglycemia and more severe surfactant deficiency. Discussed ultimate discharge criteria and need for good pediatric follow up ( medical and developmental) as outpatients. Expected discharge would likely occur closer to the due date if the infant has an uncomplicated hospitalization. Support systems in [facility] at [facility] were reviewed and included , Case Management and Ministry which the family may utilize. Greater than 50% of the consultation time was spent with the patient. ANNABELLA ABRAHAM Oct 26, 2016 09:26
[2016-10-26] MEDS ORDERED: OXYTOCIN 10 UNIT/ML AMP ONE (09:41)
[2016-10-26] MEDS: ONDANSETRON HCL 4 MG/2 ML VIAL IV PRN (10:00)
[2016-10-26] MEDS ORDERED: CITRIC ACID-SODIUM CITRATE LIQ 30 ML UDC ONE (10:10)
[2016-10-26] MEDS ORDERED: NIFEdipine 10 MG CAP PO ONE ×2 (10:15→19:30)
[2016-10-26] MEDS ORDERED: ceFAZolin 2 GM PREMIX 50 ML IV SCH (10:15)
[2016-10-26] MEDS ORDERED: DEXTROSE 50% IN WATER 50 ML SYRINGE ONE (10:21)
[2016-10-26] MEDS ORDERED: SODIUM CHLORIDE 0.9% FLUSH 10 ML FLUSH IV FLUSH PRN (11:15)
[2016-10-26] MEDS ORDERED: KETOROLAC TROMETHAMINE 60 MG/2 ML (IM) VIAL IM PRN (11:15)
[2016-10-26] MEDS ORDERED: oxyCODONE/ACETAMINOPHEN 5 MG/325 MG TAB PO PRN (11:15)
[2016-10-26] MEDS ORDERED: MORPHINE SULFATE PF 5 MG/10 ML VIAL ONE (11:22)
--- NOTE | 2016-10-26 11:26 | PD.OB.DELI ---
Procedure Note Section Procedure Pre Op Diagnosis: (1) Severe pre-eclampsia complicating childbirth (2) Dichorionic diamniotic twin gestation (3) Diabetes mellitus Post Op Diagnosis: (1) Severe pre-eclampsia complicating childbirth (2) Diabetes mellitus Performed by Tacho Amador Procedure: Primary Low Transverse Sec Indication for delivery: Maternal medical problems (severe preeclampsia with 6 grams of protein and elevated LFT) Previous condition: None Informed consent obtained: For anesthesia, For procedure Confirmed correct: Patient, Procedure, Time-out taken Anesthesia: Spinal Monitoring during procedure: Blood pressure monitoring Urinary catheter: Inserted using sterile technique, To dependent drainage Sterile preparation: Duraprep Position: Supine with wedge to left side Operative Features Skin Incision: Pfannenstiel Uterine Incision: Low transverse w/knife / blunt ext Membranes Ruptured: Artificially Presentation: Occiput anterior (twin B breech), Breech Delivery date: Oct 26, 2016 Delivery time: 10:44 Delivery of infant: Assisted (vacuum) : Female, Multiple One Minute : 4 Five Minute : 8 Weight: 6# 8 oz and 4# Status of infant: Viable, Nursery present, Resuscitation required Placenta delivered: Intact Medications: Antibiotics Estimated blood loss: 300 Maternal Complications: Unstable blood glucose Maternal Condition: Stable Condition: Stable Tacho Amador MD Oct 26, 2016 11:26
[2016-10-26] MEDS ORDERED: OXYTOCIN 30 UNITS-500ML PREMIX 500 ML ONE ×2 (11:59→13:07)
[2016-10-26] MEDS ORDERED: METOCLOPRAMIDE HCL 10 MG/2 ML VIAL IV ONE (12:30)
[2016-10-26] MEDS ORDERED: DEXAMETHASONE SOD PHOS 4 MG/ML VIAL IM ONE (12:30)
[2016-10-26] MEDS ORDERED: EPIDURAL-DIPHENHYDRAMINE HCL 50 MG CAP PO PRN (14:30)
[2016-10-26] MEDS ORDERED: EPIDURAL-DO NOT ADMINISTER ANTICOAGULANTS PRN (14:30)
[2016-10-26] MEDS ORDERED: EPIDURAL-NO SYSTEMIC NARCOTICS PRN (14:30)
[2016-10-26] MEDS ORDERED: EPIDURAL-DIPHENHYDRAMINE HCL 50 MG/ML VIAL IV PUSH PRN (14:30)
[2016-10-26] MEDS ORDERED: EPIDURAL-NALOXONE HCL 0.4 MG/ML AMP IV PUSH PRN (14:30)
[2016-10-26] MEDS: LACTATED RINGER'S 1000 ML INJ 1,000 ML IV SCH (16:00)
[2016-10-26] MEDS ORDERED: OXYTOCIN 30 UNITS-500ML PREMIX 500 ML IV SCH (16:30)
[2016-10-26 19:45] LABS: ANION GAP 12 MEQ/L (5-15); AST (GOT) 47 U/L (15-37); BICARBONATE 18.7 MEQ/L (21.0-32.0); BLOOD UREA NITROGEN 22 MG/DL (7-18); CHLORIDE 102 MEQ/L (98-107); GLOMERULAR FILTRATION RATE 69 ML/MIN (>89); POTASSIUM 4.2 MEQ/L (3.5-5.1); SODIUM (NA) 133 MEQ/L (136-145)
[2016-10-26 19:48] LABS: ALKALINE PHOSPHATASE 170 U/L (45-117); ALT (GPT) 37 U/L (10-53); TOTAL BILIRUBIN ADULT 0.2 MG/DL (0.2-1.0)
[2016-10-26] MEDS: IBUPROFEN 600 MG TAB PO PRN (20:24)
[2016-10-26] MEDS: oxyCODONE/ACETAMINOPHEN 5 MG/325 MG TAB PO PRN (20:24)
[2016-10-26] MEDS: SODIUM CHLORIDE 0.9% FLUSH 10 ML FLUSH IV FLUSH SCH (21:00)
[2016-10-26] MEDS: SIMETHICONE 80 MG CHEWABLE TAB PO PRN (23:48)
[2016-10-27] VITALS (64 sets, daily range): BP systolic 70–176; BP diastolic 24–124; PULSE 54–107; RESP 16–18; TEMP 97.8–98.2; O2SAT 97–99
[2016-10-27] MEDS: LACTATED RINGER'S 1000 ML INJ 1,000 ML IV SCH (02:00)
[2016-10-27] MEDS: IBUPROFEN 600 MG TAB PO PRN ×3 (03:44→18:40)
[2016-10-27 06:44] LABS: AUTOMATED NEUTROPHIL # 12.5 TH/MM3 (1.8-7.7); BASOPHIL % 0.1 % (0.0-2.0); EOSINOPHIL % 0.1 % (0.0-4.0); HEMATOCRIT 34.1 % (35.0-46.0); HEMO FLAGS DIFF FINAL; LYMPH % 12.7 % (9.0-44.0); MEAN CELL VOLUME 89.3 FL (80.0-100.0); MEAN CORPUSCULAR HEMOGLOBIN 30.1 PG (27.0-34.0); MEAN CORPUSCULAR HGB CONC 33.8 % (32.0-36.0); MONO % 7.7 % (0.0-8.0); NEUT % 79.4 % (16.0-70.0); PLATELET COUNT 159 TH/MM3 (150-450); RED BLOOD COUNT 3.82 MIL/MM3 (4.00-5.30); RED CELL DISTRIBUTION WIDTH 13.5 % (11.6-17.2); WHITE BLOOD COUNT 15.8 TH/MM3 (4.0-11.0)
[2016-10-27] MEDS: SIMETHICONE 80 MG CHEWABLE TAB PO PRN ×2 (08:05→15:49)
[2016-10-27] MEDS: SODIUM CHLORIDE 0.9% FLUSH 10 ML FLUSH IV FLUSH SCH (08:13)
--- NOTE | 2016-10-27 10:16 | HHI.OB ---
Subjective Post Day: 1 Remarks doing well. Preeclampsia is improving Objective Vitals/I&O Vital Signs Date Time Temp Pulse Resp B/P (MAP) Pulse Ox O2 Delivery O2 Flow Rate FiO2 10/27/16 09:00 17 10/27/16 09:00 74 145/85 (105) 10/27/16 08:00 18 10/27/16 08:00 80 158/87 (110) 10/27/16 07:00 17 10/27/16 07:00 76 125/77 (93) 10/27/16 06:00 74 126/74 (91) 10/27/16 05:00 73 125/76 (92) 10/27/16 04:00 72 134/79 (97) 10/27/16 03:06 97.9 10/27/16 03:00 88 136/63 (87) 10/27/16 02:08 18 10/27/16 02:00 77 130/73 (92) 10/27/16 01:00 81 131/76 (94) 10/27/16 00:00 18 10/27/16 00:00 84 137/81 (99) 10/26/16 23:00 88 150/87 (108) 10/26/16 22:00 99 144/98 (113) 10/26/16 21:45 97.9 10/26/16 21:34 18 10/26/16 21:34 18 10/26/16 21:29 20 10/26/16 21:25 103 98 10/26/16 21:20 102 98 10/26/16 21:15 89 96 10/26/16 21:10 90 96 10/26/16 21:05 89 96 10/26/16 21:00 93 140/78 (98) 97 10/26/16 21:00 85 10/26/16 20:15 106 98 10/26/16 20:10 99 98 10/26/16 20:06 98 158/94 (115) 10/26/16 20:05 101 99 10/26/16 20:00 101 162/95 (117) 99 10/26/16 20:00 99 10/26/16 19:30 109 99 10/26/16 19:25 100 162/83 (109) 99 10/26/16 19:25 97 9/16/17 19:20 90 96 9/16/17 19:15 95 96 9/16/17 19:10 100 97 9/16/17 19:08 97 165/85 (111) 9/16/17 19:05 101 97 9/16/17 19:03 98 166/89 (114) 9/16/17 19:00 103 168/90 (116) 99 9/16/17 19:00 95 9/16/17 18:55 99 98 9/16/17 18:50 101 99 9/16/17 18:45 98 98 9/16/17 18:40 91 96 9/16/17 18:35 95 97 9/16/17 18:30 97 98 9/16/17 18:25 99 99 9/16/17 18:20 97 98 9/16/17 18:15 99 96 9/16/17 18:10 95 96 9/16/17 18:05 98 17 99 9/16/17 18:00 88 9/16/17 18:00 89 153/90 (111) 96 9/16/17 17:55 90 97 9/16/17 17:50 108 98 9/16/17 17:45 98 98 9/16/17 17:40 104 98 9/16/17 17:35 103 99 9/16/17 17:30 91 97 9/16/17 17:25 100 98 9/16/17 17:20 101 98 9/16/17 17:15 106 98 9/16/17 17:10 102 99 9/16/17 17:08 18 9/16/17 17:05 97 98 9/16/17 17:00 95 157/91 (113) 99 9/16/17 17:00 94 9/16/17 16:57 17 9/16/17 16:55 97 99 9/16/17 16:50 101 99 9/16/17 16:45 100 99 9/16/17 16:40 98 99 9/16/17 16:35 99 99 9/16/17 16:34 92 159/92 (114) 9/16/17 16:30 92 9/16/17 16:30 98 167/89 (115) 98 9/16/17 16:25 99 98 9/16/17 16:20 98 98 9/16/17 16:15 95 98 9/16/17 16:10 98 97 9/16/17 16:05 104 99 9/16/17 16:00 98.7 9/16/17 16:00 103 9/16/17 16:00 100 170/85 (113) 98 9/16/17 15:55 105 99 9/16/17 15:50 103 99 9/16/17 15:45 103 99 9/16/17 15:40 103 99 9/16/17 15:35 103 99 9/16/17 15:30 102 99 9/16/17 15:26 18 9/16/17 15:25 102 98 9/16/17 15:20 107 98 9/16/17 15:15 106 98 9/16/17 15:10 115 98 9/16/17 15:05 95 9/16/17 15:05 91 9/16/17 15:00 19 9/16/17 15:00 92 151/78 (102) 95 9/16/17 15:00 90 9/16/17 14:55 91 96 9/16/17 14:50 92 96 9/16/17 14:45 91 96 9/16/17 14:40 94 96 9/16/17 14:35 112 97 9/16/17 14:30 105 97 9/16/17 14:25 102 97 9/16/17 14:20 109 96 9/16/17 14:15 100 96 9/16/17 14:10 101 96 9/16/17 14:09 101 163/85 (111) 9/16/17 14:00 99 /16/17 13:00 158/93 (114) 9/16/17 13:00 98 9/16/17 12:45 98.5 99 9/16/17 12:45 18 9/16/17 12:30 99 20 131/81 (98) 99 9/16/17 12:15 108 20 99 9/16/17 12:00 109 140/86 (104) 99 9/16/17 11:57 18 9/16/17 11:45 105 99 9/16/17 11:45 140/88 (105) 9/16/17 11:41 17 9/16/17 11:30 148/76 (100) 9/16/17 11:29 99 9/16/17 11:29 109 18 9/16/17 11:10 141/70 (93) 10/26/16 11:10 98.7 99 10/26/16 11:10 101 17 Objective Remarks GENERAL: Well-nourished, well-developed patient. ABDOMEN/GI: Abdomen soft, non-tender. Fundus: Firm, non-tender at umbilicus. GENITOURINARY: Light to moderate bleeding. EXTREMITIES: No cyanosis or edema, non-tender, without signs of DVT. Medications and IVs Current Medications Medications (Trade) Dose Ordered Sig/Natalie Route Start Time Stop Time Status Last Admin (Calcium Gluconate Inj) 1 gm UNSCH PRN IV PUSH 10/24/16 22:30 (Tylenol) 650 mg Q4H PRN PO 10/24/16 22:30 10/25/16 17:21 (Zofran Inj) 4 mg Q6H PRN IV 10/24/16 22:30 10/26/16 10:00 (Ambien) 5 mg HS PRN PO 10/24/16 22:30 Magnesium Sulfate 1,000 ml @ 50 mls/hr Q20H IV 10/26/16 00:30 10/27/16 11:00 10/26/16 21:50 Lactated Ringer's 1,000 ml @ 100 mls/hr Q10H IV 10/26/16 16:00 10/27/16 11:59 (NS Flush) 2 ml BID IV FLUSH 10/26/16 21:00 10/27/16 08:13 (NS Flush) 2 ml UNSCH PRN IV FLUSH 10/26/16 11:15 (Mylicon Chew) 80 mg QID PRN PO 10/26/16 11:15 10/27/16 08:05 (Motrin) 600 mg Q6H PRN PO 10/26/16 11:15 10/27/16 09:29 (Toradol Inj) 30 mg Q6H PRN IM 10/26/16 11:15 10/27/16 11:14 10/26/16 14:22 (Percocet 5-325 Mg) 1 tab Q4H PRN PO 10/26/16 11:15 10/26/16 20:24 (Percocet 5-325 Mg) 2 tab Q4H PRN PO 10/26/16 11:15 (M-M-R Ii Inj) 0.5 ml ONCE ONCE SQ 10/27/16 16:00 10/27/16 16:01 (Boostrix Inj) 0.5 ml ONCE ONCE IM 10/27/16 16:00 10/27/16 16:01 Miscellaneous Information NO SYSTEMIC NARCOTICS TO BE GIVEN FO... UNSCH PRN .XX 10/26/16 14:30 10/27/16 14:29 (Narcan Inj) 0.4 mg UNSCH PRN IV PUSH 10/26/16 14:30 10/27/16 14:29 (Benadryl Inj) 25 mg Q6H PRN IV PUSH 10/26/16 14:30 10/27/16 14:29 (Benadryl) 50 mg Q6H PRN PO 10/26/16 14:30 10/27/16 14:29 Miscellaneous Information ALL NURSING DEPARTMENTS UNSCH PRN .XX 10/26/16 14:30 10/27/16 14:29 Oxytocin 500 ml @ 25 mls/hr CONTINUOUS IV 10/26/16 16:30 10/26/16 17:16 Assessment/Plan Problem List: (1) 33 weeks gestation of ICD Codes: Z3A.33 - 33 weeks gestation of (2) Dichorionic diamniotic twin gestation ICD Codes: O30.049 - Twin , dichorionic/diamniotic, unspecified trimester (3) Hypertension affecting in third trimester ICD Codes: O16.3 - Unspecified maternal hypertension, third trimester (4) Diabetes mellitus ICD Codes: E11.9 - Type 2 diabetes mellitus without complications Qualifiers: (5) Delivered by section ICD Codes: O82 - Encounter for delivery without indication Status: Acute Assessment and Plan Patient had CS for severe preeclamsia and worsening symptoms and early Heelp Tacho Amador MD Oct 27, 2016 10:16
[2016-10-27] MEDS ORDERED: AMMONIA AROMATIC INHALANT 0.33 ML ONE ×2 (12:15→20:22)
[2016-10-27] MEDS ORDERED: MEASLES, MUMPS, RUBELLA VACCINE 0.5 ML VIAL SQ ONE (16:00)
[2016-10-27] MEDS ORDERED: DIPHTH/TETANUS/ACEL PERTUSSIS (BOOSTER) 0.5 ML VIAL/PFS IM ONE (16:00)
[2016-10-27 17:54] LABS: HEMATOCRIT 37.4 % (35.0-46.0); MEAN CELL VOLUME 89.2 FL (80.0-100.0); MEAN CORPUSCULAR HEMOGLOBIN 30.2 PG (27.0-34.0); MEAN CORPUSCULAR HGB CONC 33.8 % (32.0-36.0); PLATELET COUNT 179 TH/MM3 (150-450); RED BLOOD COUNT 4.19 MIL/MM3 (4.00-5.30); RED CELL DISTRIBUTION WIDTH 13.4 % (11.6-17.2); REVIEW FLAG FINAL; WHITE BLOOD COUNT 14.8 TH/MM3 (4.0-11.0)
[2016-10-27] MEDS: oxyCODONE/ACETAMINOPHEN 5 MG/325 MG TAB PO PRN (20:34)
[2016-10-27] MEDS ORDERED: NIFEdipine 10 MG CAP PO ONE (23:15)
[2016-10-27] MEDS: LABETALOL HCL 100 MG TAB PO SCH (23:24)
[2016-10-28 01:15] VITALS: BP 125/71; PULSE 85; RESP 16; TEMP 98.3
[2016-10-28] MEDS: DOCUSATE SODIUM 50 MG/SENNA 8.6 MG TAB PO PRN ×2 (01:32→15:24)
[2016-10-28] MEDS: oxyCODONE/ACETAMINOPHEN 5 MG/325 MG TAB PO PRN ×4 (01:32→21:47)
[2016-10-28] MEDS: IBUPROFEN 600 MG TAB PO PRN ×4 (01:32→21:49)
[2016-10-28 05:00] VITALS: BP 136/73; PULSE 86; RESP 16; TEMP 99.4
[2016-10-28 07:20] VITALS: BP 148/91; PULSE 96; RESP 18; TEMP 98.9
[2016-10-28] MEDS: SIMETHICONE 80 MG CHEWABLE TAB PO PRN ×2 (08:16→15:25)
[2016-10-28] MEDS: LABETALOL HCL 100 MG TAB PO SCH ×2 (08:16→21:46)
[2016-10-28 11:40] VITALS: BP 165/95
[2016-10-28] MEDS: NIFEdipine 10 MG CAP PO PRN (11:48)
[2016-10-28 12:47] VITALS: BP 139/80
--- NOTE | 2016-10-28 13:12 | HHI.OB ---
Subjective Post Day: 2 Remarks doing well Objective Vitals/I&O Vital Signs Date Time Temp Pulse Resp B/P (MAP) Pulse Ox O2 Delivery O2 Flow Rate FiO2 10/28/16 12:47 139/80 (99) 10/28/16 11:40 165/95 (118) 10/28/16 07:20 98.9 96 18 148/91 (110) 10/28/16 05:00 99.4 86 16 136/73 (94) 10/28/16 01:15 85 125/71 (89) 10/28/16 01:15 98.3 16 10/27/16 22:30 18 10/27/16 22:30 82 10/27/16 22:30 176/98 (124) 10/27/16 20:00 164/99 (120) 10/27/16 20:00 98.2 87 18 10/27/16 17:30 87 159/95 (116) 10/27/16 17:30 97.8 18 97 10/27/16 15:40 98 97 10/27/16 15:35 98 97 10/27/16 15:30 103 10/27/16 15:30 98 162/94 (116) 98 10/27/16 15:25 88 97 10/27/16 15:20 90 98 10/27/16 15:15 85 97 10/27/16 15:10 88 97 10/27/16 15:05 83 97 10/27/16 15:00 81 10/27/16 15:00 88 154/91 (112) 98 10/27/16 14:55 87 98 10/27/16 14:50 95 98 10/27/16 14:45 92 98 10/27/16 14:40 92 98 10/27/16 14:35 86 98 10/27/16 14:30 94 10/27/16 14:30 75 140/81 (100) 97 10/27/16 14:25 77 98 10/27/16 14:20 75 98 10/27/16 14:15 76 99 10/27/16 14:10 75 98 10/27/16 14:05 88 99 10/27/16 14:00 75 138/82 (100) 98 10/27/16 14:00 71 10/27/16 13:55 98 10/27/16 13:55 73 10/27/16 13:50 69 10/27/16 13:50 98 10/27/16 13:45 72 98 10/27/16 13:40 78 99 10/27/16 13:35 74 98 10/27/16 13:30 77 10/27/16 13:30 73 142/85 (104) 99 10/27/16 13:25 75 99 10/27/16 13:20 77 99 10/27/16 13:15 77 10/27/16 13:15 80 142/78 (99) 99 Objective Remarks GENERAL: Well-nourished, well-developed patient. ABDOMEN/GI: Abdomen soft, non-tender. Fundus: Firm, non-tender at umbilicus. GENITOURINARY: Light to moderate bleeding. EXTREMITIES: No cyanosis or edema, non-tender, without signs of DVT. Medications and IVs Current Medications Medications (Trade) Dose Ordered Sig/Natalie Route Start Time Stop Time Status Last Admin (Calcium Gluconate Inj) 1 gm UNSCH PRN IV PUSH 10/24/16 22:30 (Tylenol) 650 mg Q4H PRN PO 10/24/16 22:30 10/25/16 17:21 (Zofran Inj) 4 mg Q6H PRN IV 10/24/16 22:30 10/26/16 10:00 (Ambien) 5 mg HS PRN PO 10/24/16 22:30 (NS Flush) 2 ml BID IV FLUSH 10/26/16 21:00 10/27/16 08:13 (NS Flush) 2 ml UNSCH PRN IV FLUSH 10/26/16 11:15 (Mylicon Chew) 80 mg QID PRN PO 10/26/16 11:15 10/28/16 08:16 (Motrin) 600 mg Q6H PRN PO 10/26/16 11:15 10/28/16 08:16 (Percocet 5-325 Mg) 1 tab Q4H PRN PO 10/26/16 11:15 10/28/16 08:15 (Percocet 5-325 Mg) 2 tab Q4H PRN PO 10/26/16 11:15 Oxytocin 500 ml @ 25 mls/hr CONTINUOUS IV 10/26/16 16:30 10/26/16 17:16 (Trandate) 100 mg BID PO 10/27/16 23:00 10/28/16 08:16 (Procardia) 10 mg Q6H PRN PO 10/27/16 23:15 10/28/16 11:48 (Yuridia-Colace) 2 tab Q12H PRN PO 10/28/16 00:30 10/28/16 01:32 Assessment/Plan Problem List: (1) 33 weeks gestation of ICD Codes: Z3A.33 - 33 weeks gestation of (2) Dichorionic diamniotic twin gestation ICD Codes: O30.049 - Twin , dichorionic/diamniotic, unspecified trimester (3) Hypertension affecting in third trimester ICD Codes: O16.3 - Unspecified maternal hypertension, third trimester (4) Diabetes mellitus ICD Codes: E11.9 - Type 2 diabetes mellitus without complications Qualifiers: (5) Delivered by section ICD Codes: O82 - Encounter for delivery without indication Status: Acute Assessment and Plan Patient had CS babies in NICU, improving on BP Tacho Li MD Oct 28, 2016 13:12
[2016-10-28 20:10] VITALS: BP 174/91; PULSE 103; RESP 20; TEMP 97.9
[2016-10-29] VITALS: BP 154/81; PULSE 109; RESP 14; TEMP 98.9
[2016-10-29] MEDS: SIMETHICONE 80 MG CHEWABLE TAB PO PRN (04:19)
[2016-10-29] MEDS: DOCUSATE SODIUM 50 MG/SENNA 8.6 MG TAB PO PRN (04:19)
[2016-10-29] MEDS: oxyCODONE/ACETAMINOPHEN 5 MG/325 MG TAB PO PRN ×3 (04:20→13:38)
[2016-10-29] MEDS: IBUPROFEN 600 MG TAB PO PRN ×2 (04:20→13:37)
[2016-10-29] MEDS: LABETALOL HCL 100 MG TAB PO SCH (09:06)
--- NOTE | 2016-10-29 11:13 | MP ---
cc: CASSIE AMADOR M.D. DATE OF SURGERY 10/26/2016 PROCEDURE Primary low transverse section. PREOPERATIVE DIAGNOSES 1. Twin intrauterine 33 weeks, 2 days. 2. Severe preeclampsia, 6 grams of protein. 3. Elevated liver functions. POSTOPERATIVE DIAGNOSES 1. Twin intrauterine 33 weeks, 2 days. 2. Severe preeclampsia, 6 grams of protein. 3. Elevated liver functions. SURGEON Dr. Cassie Amador INTERMEDIATE MANAGER Assisted by Bob Vera MD ANESTHESIA Spinal, Dr. Medley FINDINGS Two live female infants, Apgars of 4 and 8 and 4, 7 and 9. Weights 6 pounds, 8 ounces and 4 pounds. PROCEDURE IN DETAIL After informed consent, the patient was taken to the operating room where she was placed under spinal anesthesia, placed in supine position in left lateral tilt. The abdomen, perineum and vagina were prepped and draped in the normal sterile fashion after adequate anesthesia was assured. The father was brought into the room. A time-out had been taken. A Pfannenstiel skin incision was carried sharply through the skin to the fascia. The fascia was nicked in the midline. The incision was extended using blunt traction. The rectus muscle was dissected off the fascia with sharp and blunt dissection. The peritoneum was entered bluntly with a finger, the incision extended laterally with blunt traction. A hand was placed in the abdomen. The uterus was noted to be midline. A low-transverse uterine incision was then made after creating a bladder flap. We entered the abdomen under direct visualization. A large amount of fluid was noted around Twin A. Twin A was brought to the incision but despite the twin B she causing obstruction for Twin A to delivery easily, we could not get a good rise in the infant's head. A vacuum was applied to the occiput portion of the infant's head and gently elevated just to develop some elevation. Once the elevation occurred and fundal pressure was given, the infant delivered. Nose and mouth suctioned well. Cord was clamped and cut and the infant was handed to the Pediatrics in attendance. Twin B was delivered without difficulty, was much smaller than Twin A. The cords were marked well. Cord blood was collected from both. The placenta was delivered manually. The uterus was exteriorized, wiped free from all remaining products of conception and contracted down nicely. The uterine incision was closed with running locked stitch of chromic suture. A second layer was placed for hemostasis. Good hemostasis was obtained at the incision. The uterus was placed back into the abdomen. We then closed the peritoneum, closed the fascia and closed the subcuticular tissue. The patient tolerated the procedure well. She was taken to the recovery room in stable condition. Lap and instrument counts were reported as correct. MD SHELBIE Sol/CELIO /11:26 AM /10:57 AM
--- NOTE | 2016-10-29 11:39 | HHI.OB ---
Subjective Post Day: 3 Remarks doing well Objective Vitals/I&O Vital Signs Date Time Temp Pulse Resp B/P (MAP) Pulse Ox O2 Delivery O2 Flow Rate FiO2 10/29/16 00:00 109 154/81 (105) 10/29/16 00:00 98.9 14 10/28/16 20:10 97.9 103 20 174/91 (118) 10/28/16 12:47 139/80 (99) 10/28/16 11:40 165/95 (118) Objective Remarks GENERAL: Well-nourished, well-developed patient. ABDOMEN/GI: Abdomen soft, non-tender. Fundus: Firm, non-tender at umbilicus. GENITOURINARY: Light to moderate bleeding. EXTREMITIES: No cyanosis, +2 edema, non-tender, without signs of DVT. Medications and IVs Current Medications Medications (Trade) Dose Ordered Sig/Natalie Route Start Time Stop Time Status Last Admin (Calcium Gluconate Inj) 1 gm UNSCH PRN IV PUSH 10/24/16 22:30 (Tylenol) 650 mg Q4H PRN PO 10/24/16 22:30 10/25/16 17:21 (Zofran Inj) 4 mg Q6H PRN IV 10/24/16 22:30 10/26/16 10:00 (Ambien) 5 mg HS PRN PO 10/24/16 22:30 (NS Flush) 2 ml BID IV FLUSH 10/26/16 21:00 10/27/16 08:13 (NS Flush) 2 ml UNSCH PRN IV FLUSH 10/26/16 11:15 (Mylicon Chew) 80 mg QID PRN PO 10/26/16 11:15 10/29/16 04:19 (Motrin) 600 mg Q6H PRN PO 10/26/16 11:15 10/29/16 04:20 (Percocet 5-325 Mg) 1 tab Q4H PRN PO 10/26/16 11:15 10/29/16 09:13 (Percocet 5-325 Mg) 2 tab Q4H PRN PO 10/26/16 11:15 Oxytocin 500 ml @ 25 mls/hr CONTINUOUS IV 10/26/16 16:30 10/26/16 17:16 (Trandate) 100 mg BID PO 10/27/16 23:00 10/29/16 09:06 (Procardia) 10 mg Q6H PRN PO 10/27/16 23:15 10/28/16 11:48 (Yuridia-Colace) 2 tab Q12H PRN PO 10/28/16 00:30 10/29/16 04:19 Assessment/Plan Problem List: (1) 33 weeks gestation of ICD Codes: Z3A.33 - 33 weeks gestation of (2) Dichorionic diamniotic twin gestation ICD Codes: O30.049 - Twin , dichorionic/diamniotic, unspecified trimester (3) Hypertension affecting in third trimester ICD Codes: O16.3 - Unspecified maternal hypertension, third trimester (4) Diabetes mellitus ICD Codes: E11.9 - Type 2 diabetes mellitus without complications Qualifiers: (5) Delivered by section ICD Codes: O82 - Encounter for delivery without indication Status: Acute Assessment and Plan Dc home today and increase labatelol to 200 bid Tacho Amador MD Oct 29, 2016 11:39
--- NOTE | 2016-10-29 11:42 | HHI.DCPOC ---
Discharge Care Plan Diagnosis: (1) Dichorionic diamniotic twin gestation (2) Severe pre-eclampsia complicating childbirth (3) Delivered by section Report Symptoms to Your Doctor -Temperature above 100.5 degrees -Redness, of incision or excessive or foul smelling drainage -Unusual pain or calf pain -Increased vaginal bleeding -Painful or difficulty urinating -Feelings of extreme sadness or anxiety after 2 weeks Goals to Promote Your Health * To prevent worsening of your condition and complications * To maintain your health at the optimal level Directions to Meet Your Goals Take your medications as prescribed Follow your dietary instruction Follow activity as directed Ensure plenty of rest for recovery Drink fluids for hydration Keep your appointments as scheduled Take your immunizations and boosters as scheduled If your symptoms worsen call your PCP, if no PCP go to Urgent Care Center or Emergency Room Smoking is Dangerous to Your Health. Avoid second hand smoke Call the 24-hour crisis hotline for domestic abuse at Tacho Amador MD Oct 29, 2016 11:42
[2016-10-29] MEDS ORDERED: OXYC1TAB63 PO (11:44)
[2016-10-29] MEDS ORDERED: LABE200T2 PO (11:44)
--- NOTE | 2016-10-29 11:47 | HHI.DS ---
Admission Date Oct 24, 2016 at 22:32 Discharge Date: Oct 29, 2016 Admitting Diagnosis Diagnosis: (1) Severe pre-eclampsia complicating childbirth ICD Codes: O14.14 - Severe pre-eclampsia complicating childbirth (2) Dichorionic diamniotic twin gestation ICD Codes: O30.049 - Twin , dichorionic/diamniotic, unspecified trimester (3) Delivered by section ICD Codes: O82 - Encounter for delivery without indication Status: Acute Delivery Date: Oct 26, 2016 : Primary Reason: severe PE remote from delivery Infant: Female, Multiple Brief History doing well at 33 weeks with Hypertension. She had BP x2 of 170/90. she had headache. She has had some visual change with spots worse today. Hospital Course patient came in and had 24 hour urine and received steroids and magnesium. She had CS after severe preeclampsia discovered Pt Condition on Discharge: Good Discharge Disposition: Discharge Home Discharge Instructions Diet Instructions: As Tolerated, No Restrictions Activities You Can Perform: Pelvic Rest Activities to Avoid: Driving for 24 hrs Follow up Referrals: TECHNICIAN ASSISTANT - 2 Weeks [facility] with Tacho Amador MD New Medications: Labetalol (Labetalol) 200 Mg Tab 200 MG PO BID for Blood Pressure Management for 30 Days, #60 TAB 7 Refills Oxycodone-Acetaminophen (Oxycodone-Acetaminophen) 5-325 mg Tab 1 TAB PO Q4H PRN for PAIN SCALE 3 TO 5 for 7 Days, #30 TAB 0 Refills Tacho Amador MD Oct 29, 2016 11:47
[2016-10-29] MEDS: NIFEdipine 10 MG CAP PO PRN (13:50)
== END 2016-10-29 14:03 | disposition home or self-care (01) | DRG 765 ==
LOC: HOBED 21:11 → H2EA 22:32 → H1EA 10-27 17:08
PROVIDERS: ADMIT Obstetrics & Gynecology; ATTEND Obstetrics & Gynecology
PROC: 10D00Z1 Extraction of Products of Conception, Low, Open Approach (ICD-10-PCS; principal; 2016-10-26)
DX: O14.14 Severe pre-eclampsia complicating childbirth (principal); O30.043 Twin pregnancy, dichorionic/diamniotic, third trimester; O75.3 Other infection during labor; O60.14X0 Preterm labor third trimester with preterm delivery third trimester, not applicable or unspecified; O24.02 Pre-existing type 1 diabetes mellitus, in childbirth; Z37.2 Twins, both liveborn; E10.9 Type 1 diabetes mellitus without complications; R79.89 Other specified abnormal findings of blood chemistry; Z3A.33 33 weeks gestation of pregnancy; Z96.41 Presence of insulin pump (external) (internal); Z79.4 Long term (current) use of insulin
CPT/HCPCS: 59025; 80053; 81001; 82570; 82731; 82948; 84157; 84550; 85025; 85027; 86850; 86900; 86901; 87086; 87210; 90715; J0702; J1100; J1885; J2274; J2405; J2590; J2765; J3010; J3475; J7120

== ENCOUNTER 2017-03-30 02:31 | Inpatient (IN) | payer BC ==
[~2017-03-30] VITALS: Ht 172.7 cm; Wt 55.0 kg
[2017-03-30] VITALS (12 sets, daily range): BP systolic 100–209; BP diastolic 51–88; PULSE 88–154; RESP 15–28; TEMP 97.7–98.9; O2SAT 95–100
[~2017-03-30 02:31] MED LIST: LABE200T2 PO; OXYC1TAB63 PO
[2017-03-30] MEDS ORDERED: insulin pump SQ ×2 (02:50)
[2017-03-30] MEDS ORDERED: SODIUM CHLORIDE 0.9% FLUSH 10 ML FLUSH IVF PRN (03:00)
[2017-03-30] MEDS ORDERED: INSULIN HUMAN REGULAR 1,000 UNITS/10 ML VIAL IV PUSH ONE ×2 (03:00→07:45)
[2017-03-30] MEDS ORDERED: SODIUM CHLOR 0.9% 1000 ML INJ 1,000 ML IV ONE ×5 (03:20→07:45)
[2017-03-30 03:24] LABS: AUTOMATED NEUTROPHIL # 4.1 TH/MM3 (1.8-7.7); BASOPHIL % 0.3 % (0.0-2.0); EOSINOPHIL # 0.2 TH/MM3 (0-0.4); EOSINOPHIL % 2.2 % (0.0-4.0); HEMATOCRIT 41.3 % (35.0-46.0); HEMOGLOBIN 13.8 GM/DL (11.6-15.3); LYMPH % 41.1 % (9.0-44.0); LYMPHOCYTE # 3.9 TH/MM3 (1.0-4.8); MEAN CELL VOLUME 82.5 FL (80.0-100.0); MEAN CORPUSCULAR HEMOGLOBIN 27.6 PG (27.0-34.0); MEAN CORPUSCULAR HGB CONC 33.4 % (32.0-36.0); MEAN PLATELET VOLUME 7.8 FL (7.0-11.0); MONO % 13.1 % (0.0-8.0); MONOCYTE # 1.3 TH/MM3 (0-0.9); NEUT % 43.3 % (16.0-70.0); PLATELET COUNT 394 TH/MM3 (150-450); RED CELL DISTRIBUTION WIDTH 12.9 % (11.6-17.2); WHITE BLOOD COUNT 9.5 TH/MM3 (4.0-11.0)
[2017-03-30 03:58] LABS: ALKALINE PHOSPHATASE 159 U/L (45-117); ALT (GPT) 27 U/L (10-53); AST (GOT) 31 U/L (15-37); BICARBONATE 12.7 MEQ/L (21.0-32.0); BLOOD UREA NITROGEN 20 MG/DL (7-18); CALCIUM 9.4 MG/DL (8.5-10.1); CHLORIDE 101 MEQ/L (98-107); CREATININE 0.84 MG/DL (0.50-1.00); GLOMERULAR FILTRATION RATE 80 ML/MIN (>89); GLUCOSE,RANDOM 426 MG/DL (74-106); MAGNESIUM 1.9 MG/DL (1.5-2.5); PHOSPHORUS 7.2 MG/DL (2.5-4.9); SODIUM (NA) 135 MEQ/L (136-145); TOTAL BILIRUBIN ADULT 0.9 MG/DL (0.2-1.0); TOTAL PROTEIN 7.8 GM/DL (6.4-8.2)
[2017-03-30 05:56] LABS: BILIRUBIN, URINE NEG (NEG); BLOOD, URINE NEG (NEG); GLUCOSE,URINE 1000 mg/dL (NEG); KETONE, URINE 150 mg/dL (NEG); MUCUS URINE FEW /lpf (OCC); NITRITE,URINE NEG (NEG); SQUAMOUS EPITHELIAL CELL URINE 1 /hpf (0-5); URINE COLOR LIGHT-YELLOW (YELLW/STRAW); URINE LEUKOCYTE ESTERASE NEG (NEG)
--- NOTE | 2017-03-30 06:36 | PD ---
HPI . Anxiety Chief Complaint: Anxiety Time Seen by Provider: 02:48 Travel History International Travel<30 days: No Contact w/Intl Traveler<30days: No Traveled to known affect area: No History of Present Illness HPI 31-year-old female notes overwhelming anxiety presentation. Patient states that she is diabetic, was insulin pump, has had persistently high blood sugars will past several days greater than 500. Patient is been bolusing with insulin pump, and cannot get control. Patient is actively writhing on the stretcher having difficulty with participating in history and exam secondary to level of distress [facility] Past Medical History Narrative Medical Past medical history reviewed Diabetes: Yes (TYPE 1) Patient Takes Glucophage: No Neurologic: Yes (BRAIN TUMOR) Tetanus Vaccination: < 5 Years Influenza Vaccination: No ?: Not : 1 Para: 2 Past Surgical History Section: Yes Neurologic Surgery: Yes (BRAIN) Social History Alcohol Use: No Tobacco Use: No Substance Use: No Allergies-Medications (Allergen,Severity, Reaction): Coded Allergies: No Known Allergies (Unverified Allergy, Unknown, 03/30/17) Reported Meds & Prescriptions Reported Meds & Active Scripts Active Reported [insulin pump] 0.8 Units SQ HOURLY AT NIGHT [insulin pump] 1 Unit SQ Q1HR PRN Narrative Medication Allergies and medications reviewed Review of Systems Except as stated in HPI: all other systems reviewed are Neg General / Constitutional: No: Fever, Chills Eyes: No: Visual changes HENT: No: Headaches Cardiovascular: Positive: Chest Pain or Discomfort, Palpitations, Tachycardia, Diaphoresis, No: Irregular Rhythm, Syncope, Dyspnea on exertion, Varicosities, Edema Respiratory: Positive: Shortness of Breath, No: Cough, Wheezing, Sneezing, Orthopnea, Hemoptysis, Stridor, Night Sweats, Pleuritic Pain Gastrointestinal: No: Abdominal Pain Genitourinary: No: Urgency, Frequency, Dysuria, Hematuria, Discharge, Vaginal Bleeding Musculoskeletal: No: Myalgias, Arthralgias, Pain Skin: No Rash Neurologic: No: Weakness Psychiatric: Positive: Anxiety, No: Depression, Suicidal Ideations, Disorder of Thought, Mood Disorder, Substance Abuse, Homicidal Ideation Endocrine: No: Polydipsia Hematologic/Lymphatic: No: Easy Bruising Physical Exam Narrative GENERAL: Awake and alert, severely anxious, writhing stretcher. Tachycardic at 145 bpm regular rhythm. Blood pressure normal. Patient is afebrile. Blood sugar fingerstick glucose bedside greater than 500 SKIN: Warm and dry. Color slightly flushed no diaphoresis cyanosis or pallor HEAD: Atraumatic. Normocephalic. EYES: Pupils equal and round. No scleral icterus. No injection or drainage. ENT: No nasal bleeding or discharge. Mucous membranes pink and moist. NECK: Trachea midline. No JVD. Supple nontender full range of motion CARDIOVASCULAR: Tachycardia regular RESPIRATORY: Tachypneic, lung sounds are clear GASTROINTESTINAL: Abdomen soft, non-tender, nondistended. Hepatic and splenic margins not palpable. MUSCULOSKELETAL: Extremities without clubbing, cyanosis, or edema. No obvious deformities. NEUROLOGICAL: Awake and alert. No obvious gross focal deficits PSYCHIATRIC: Markedly anxious. Data Data Last Documented VS Vital Signs Date Time Temp Pulse Resp B/P (MAP) Pulse Ox O2 Delivery O2 Flow Rate FiO2 03/30/17 07:15 98.7 151 15 114/55 (74) 96 Room Air Orders Orders Electrocardiogram (03/30/17 02:50) Complete Blood Count With Diff (03/30/17 02:50) Comprehensive Metabolic Panel (03/30/17 02:50) Magnesium (Mg) (03/30/17 02:50) Phosphorus (Po4) (03/30/17 02:50) Beta Hydroxybutyrate (Acetone) (03/30/17 02:50) Lactic Acid (03/30/17 02:50) Urinalysis - C+S If Indicated (03/30/17 02:50) Blood Gas Venous (Vbg) (03/30/17 02:50) Blood Glucose (03/30/17 02:50) Blood Glucose (03/30/17 03:50) Ecg Monitoring (03/30/17 02:50) Iv Access Insert/Monitor (03/30/17 02:50) Oximetry (03/30/17 02:50) NPO (03/30/17 02:50) Sodium Chlor 0.9% 1000 Ml Inj (Ns 1000 M (03/30/17 03:20) Sodium Chloride 0.9% Flush (Ns Flush) (03/30/17 03:00) Lipase (03/30/17 02:50) Insulin Human Regular Inj (Novolin R Inj (03/30/17 03:00) D-Dimer (03/30/17 03:00) Drug Screen, Random Urine (03/30/17 03:23) Beta Hcg (Quant/Titer) (03/30/17 03:05) Sodium Chlor 0.9% 1000 Ml Inj (Ns 1000 M (03/30/17 04:30) Sodium Chlor 0.9% 1000 Ml Inj (Ns 1000 M (03/30/17 04:30) Lactic Acid (03/30/17 05:58) Basic Metabolic Panel (Bmp) (03/30/17 05:58) Sodium Chlor 0.9% 1000 Ml Inj (Ns 1000 M (03/30/17 07:45) Sodium Chlor 0.9% 1000 Ml Inj (Ns 1000 M (03/30/17 07:45) Insulin Human Regular Inj (Novolin R Inj (03/30/17 07:45) Dext 5%-Nacl 0.45% 1000 Ml Inj (D5w-/2 (03/30/17 07:45) Dextrose 5% In [place]... W/Sodium Bicarbon (03/30/17 07:45) Thyroid Stimulating Hormone (03/30/17 07:45) Total T3 (03/30/17 07:45) Free Thyroxine (T4) (03/30/17 07:45) Arterial Blood Gas (Abg) (03/30/17 ) Admit Order (Ed Use Only) (03/30/17 08:15) Labs Laboratory Tests Test 03/30/17 03:05 03/30/17 03:15 03/30/17 04:20 03/30/17 06:10 White Blood Count 9.5 TH/MM3 Red Blood Count 5.00 MIL/MM3 Hemoglobin 13.8 GM/DL Hematocrit 41.3 % Mean Corpuscular Volume 82.5 FL Mean Corpuscular Hemoglobin 27.6 PG Mean Corpuscular Hemoglobin Concent 33.4 % Red Cell Distribution Width 12.9 % Platelet Count 394 TH/MM3 Mean Platelet Volume 7.8 FL Neutrophils (%) (Auto) 43.3 % Lymphocytes (%) (Auto) 41.1 % Monocytes (%) (Auto) 13.1 % Eosinophils (%) (Auto) 2.2 % Basophils (%) (Auto) 0.3 % Neutrophils # (Auto) 4.1 TH/MM3 Lymphocytes # (Auto) 3.9 TH/MM3 Monocytes # (Auto) 1.3 TH/MM3 Eosinophils # (Auto) 0.2 TH/MM3 Basophils # (Auto) 0.0 TH/MM3 CBC Comment AUTO DIFF Differential Comment AUTO DIFF CONFIRMED Platelet Estimate NORMAL Platelet Morphology Comment NORMAL Blood Gas Puncture Site Blood Gas Patient Temperature 98.6 Venous Blood pH 7.19 Venous Blood Partial Pressure CO2 27 mmHg Venous Blood Partial Pressure O2 85 mmHg Venous Blood HCO3 10 mmol/L Venous Blood Oxygen Saturation 92 % Venous Blood Oxygen Content 17.1 Vol % Venous Blood Base Excess -16.6 mmol/L Oxygen Delivery Device ROOM AIR Blood Gas Inspired Oxygen 21 % Blood Urea Nitrogen 20 MG/DL 16 MG/DL Creatinine 0.84 MG/DL 0.40 MG/DL Random Glucose 426 MG/DL 231 MG/DL Total Protein 7.8 GM/DL Albumin 4.0 GM/DL Calcium Level 9.4 MG/DL 7.8 MG/DL Phosphorus Level 7.2 MG/DL Magnesium Level 1.9 MG/DL Alkaline Phosphatase 159 U/L Aspartate Amino Transf (AST/SGOT) 31 U/L Alanine Aminotransferase (ALT/SGPT) 27 U/L Total Bilirubin 0.9 MG/DL Sodium Level 135 MEQ/L 140 MEQ/L Potassium Level 4.6 MEQ/L 5.0 MEQ/L Chloride Level 101 MEQ/L 113 MEQ/L Carbon Dioxide Level 12.7 MEQ/L 12.2 MEQ/L Anion Gap 21 MEQ/L 15 MEQ/L Estimat Glomerular Filtration Rate 80 ML/MIN 187 ML/MIN Lipase 106 U/L Human Chorionic Gonadotropin, Quant LESS THAN 1 MIU/ML B-Hydroxybutyrate 5.13 MMOL/L D-Dimer Quantitative (PE/DVT) 0.44 MG/L FEU Lactic Acid Level 4.0 mmol/L 0.8 mmol/L Urine Color LIGHT-YELLOW Urine Turbidity CLEAR Urine pH 5.0 Urine Specific [place] 1.021 Urine Protein 30 mg/dL Urine Glucose (UA) 1000 mg/dL Urine Ketones 150 mg/dL Urine Occult Blood NEG Urine Nitrite NEG Urine Bilirubin NEG Urine Urobilinogen LESS THAN 2.0 MG/DL Urine Leukocyte Esterase NEG Urine RBC LESS THAN 1 /hpf Urine WBC LESS THAN 1 /hpf Urine Squamous Epithelial Cells 1 /hpf Urine Mucus FEW /lpf Microscopic Urinalysis Comment CULT NOT INDICATED Urine Opiates Screen NEG Urine Barbiturates Screen NEG Urine Amphetamines Screen NEG Urine Benzodiazepines Screen NEG Urine Cocaine Screen NEG Urine Cannabinoids Screen NEG Test 03/30/17 07:55 Blood Gas Puncture Site LT RADIAL Blood Gas Patient Temperature 98.6 Blood Gas HCO3 8 mmol/L Blood Gas Base Excess -19.4 mmol/L Blood Gas Oxygen Saturation 95 % Arterial Blood pH 7.16 Arterial Blood Partial Pressure CO2 22 mmHg Arterial Blood Partial Pressure O2 112 mmHG Arterial Blood Oxygen Content 16.3 Vol % Arterial Blood Carboxyhemoglobin 0.9 % Arterial Blood Methemoglobin 0.6 % Blood Gas Hemoglobin 12.1 G/DL Oxygen Delivery Device ROOM AIR Blood Gas Inspired Oxygen 21 % MDM Medical Decision Making Medical Screen Exam Complete: Yes Emergency Medical Condition: Yes Medical Record Reviewed: Yes Differential Diagnosis Diabetic ketoacidosis, anxiety, infection, malfunctioning insulin pump Narrative Course 2 large-bore IV lines established immediately by nursing staff, patient received 2 L IV fluid 10 units of insulin IV push. Patient's blood sugar improved dramatically to 190 via fingerstick. Patient's laboratory examinations reviewed. Patient has elevated lactate 4, elevated beta hydroxybutyrate over 5, markedly decreased bicarbonate on Chem-7 at 12.7, pH on VBG 7.19. Case discussed with Dr. Wong ICU/limb driver, as well as Dr. Wheeler hospitalist service. Patient improving greatly, however patient has a concerning presentation as well as laboratory values. Repeat BMP and lactate pending. Room placement, ICU versus medical floor upon those results and further clinically reevaluation Repeat BMP bicarbonate 12.7-12.2. Large ant gap persists. Case discussed with Dr. Crowder, bicarbonate drip added, D5 added, insulin drip change from boluses to continuous, admitted to ICU. Diagnosis Primary Impression: Diabetic ketoacidosis Qualified Codes: E10.10 - Type 1 diabetes mellitus with ketoacidosis without coma Admitting Information Admitting Physician Requests: Admit Dae Waldrop MD Mar 30, 2017 06:36
[2017-03-30 07:11] LABS: BICARBONATE 12.2 MEQ/L (21.0-32.0); CALCIUM 7.8 MG/DL (8.5-10.1); CREATININE 0.4 MG/DL (0.50-1.00)
[2017-03-30] MEDS ORDERED: DEXT 5%-NACL 0.45% 1000 ML INJ 1,000 ML IV ONE (07:45)
[2017-03-30] MEDS ORDERED: SODIUM BICARBONATE 8.4% INJ 150 MEQ in DEXTROSE 5% IN WATE 1000ML INJ 1,000 ML IV SCH ×2 (07:45)
[2017-03-30 09:06] LABS: FREE T4 3.47 NG/DL (0.76-1.46)
[2017-03-30] MEDS ORDERED: ACETAMINOPHEN 325 MG TAB PO ONE (09:15)
[2017-03-30] MEDS ORDERED: SODIUM BICARBONATE 8.4% SOLN 50 MEQ/50 ML VIAL IV PUSH PRN ×2 (10:15)
[2017-03-30] MEDS ORDERED: POTASSIUM CHLOR 20 MEQ PREMIX 100 ML IV PRN ×5 (10:15)
[2017-03-30] MEDS ORDERED: MISCELLANEOUS NURSING INFORMATION XX SCH ×2 (10:15)
[2017-03-30] MEDS ORDERED: CHLORHEXIDINE GLUCONATE 2 % 1 PACK (2 CLOTHS) TOP PRN ×2 (10:15)
[2017-03-30] MEDS ORDERED: SODIUM PHOSPHATE INJ 15 MMOL in SODIUM CHLORIDE 0.9% INJ 100 ML IV PRN (10:15)
[2017-03-30] MEDS ORDERED: POTASSIUM CHLOR 40 MEQ PREMIX 100 ML IV PRN ×2 (10:15)
[2017-03-30] MEDS ORDERED: INSULIN REGULAR (IV INFUSION) 100 UNITS in SODIUM CHLORIDE 0.9% INJ 99 ML IV PRN (10:15)
[2017-03-30] MEDS: DEXT 5%-NACL 0.9% 1000 ML INJ 1,000 ML IV SCH ×2 (12:22→20:13)
[2017-03-30] MEDS ORDERED: METOPROLOL TARTRATE 50 MG TAB PO SCH (12:45)
--- NOTE | 2017-03-30 14:08 | MH ---
cc: RAE PONCE M.D. DATE OF ADMISSION: 03/30/2017 HISTORY OF PRESENT ILLNESS: The patient is a 31-year-old female with past medical history of type 1 diabetes mellitus diagnosed twenty years ago and has an insulin pump who presented to the [facility] Emergency Department with elevated blood sugar and emesis. The patient states that she had persistently high blood sugar of greater than 500. On arrival to the emergency department, she was tachycardic and tachypneic. ABG was performed, which showed severe metabolic acidosis with a pH of 7.16, C02 22, bicarbonate 8, saturation 95%. Her laboratory data showed a blood sugar of 426 on the Basic metabolic profile and a lactic acid level of 4.0. In the emergency department, she was given 4 liters of normal saline and regular insulin 10 units IV push x1. On further history, she reports being anxious and palpitations intermittently for a long time. The patient was last admitted for diabetic ketoacidosis five years ago. She denies any nausea or vomiting or abdominal pain. Patient recently delivered twins five months ago. PAST MEDICAL HISTORY: Her past medical history is significant for: 1. Type 1 diabetes mellitus. 2. Brain tumor removed in 2004, which was benign. PAST SURGICAL HISTORY: 1. section approximately five months ago. 2. Brain tumor resection in 2004. ALLERGIES: NO KNOWN DRUG ALLERGIES. FAMILY HISTORY: Raynaud's disease runs in the family. SOCIAL HISTORY: Nonsmoker and non-drinker. REPORTED MEDICATIONS: On insulin pump at home. REVIEW OF SYSTEMS: The review of systems is as per the history of present illness, and the rest of the review of systems is unremarkable. PHYSICAL EXAMINATION: GENERAL: A 31-year-old female lying in bed in no acute distress. VITAL SIGNS: Temperature 98.7, heart rate 120 to 150, respiratory rate 16, blood pressure 114/55, saturation 96% on room air. HEAD, EYES, EARS, NOSE, THROAT: Normocephalic and atraumatic. Pupils equal, round and reactive to light and accommodation. Extraocular muscles intact. Conjunctivae are pink. Nonicteric sclerae. Oral mucosa within normal limits. NECK: The neck is supple. No jugular venous distention, adenopathy or thyromegaly. Trachea in the midline. CARDIOVASCULAR: Tachycardic. Normal S1 and S2. No murmurs, rubs or gallops noted. PULMONARY: Bilateral equal air entry. No rales or wheezing. ABDOMEN: The abdomen is soft, nontender and no distention. Positive bowel sounds. EXTREMITIES: No cyanosis, clubbing or edema. NEUROLOGIC: No focal sensory deficit. LABORATORY DATA: WBCs 9.5, hemoglobin 13.8, hematocrit 41, platelet count of 394,000. Sodium 135, potassium 4.6, chloride 101, carbon dioxide 12, BUN 20, creatinine 0.84, glucose 426, alkaline phosphatase 159, AST 31, ALT 27, albumin 4. Repeat basic metabolic profile: Sodium 140, potassium 5, chloride 113, carbon dioxide 12, BUN 16, creatinine 0.4, glucose 213, lactic acid 4.0 and on repeat 0.8. Thyroid studies showed a TSH of less than 0.005 with a free T4 of 3.47 and a total T3 of 220. EKGS: EKG showed atrial flutter/tachycardia with a rate of 153 beats per minute and nonspecific T wave abnormalities. IMPRESSION: 1. Diabetic ketoacidosis. 2. Lactic acidemia, resolved. 3. History of type 1 diabetes mellitus on insulin pump. 4. Intractable nausea and vomiting. 5. Atrial tachycardia. 6. ? primary hypothyroidism. 7. Anxiety disorder by history. RECOMMENDATIONS: 1. Monitor neuro status closely and avoid any sedatives. 2. Oxygen PRN to maintain saturations above 92%. 3. Place on Lopressor 25 milligrams p.o. q. 12 for rate control. Monitor heart rate and blood pressure closely and maintain MAP greater than 65 mmHg. 4. Repeat lactic acid measures 0.8 from 4.0. She was given four liters of crystalloids in the emergency department. 5. Will obtain a 2-D echocardiogram to evaluate left ventricular function. 6. Monitor renal function, intake and output and electrolyte replacement per protocol. Monitor BNP, magnesium, phosphorus q. 6 hours and beta- hydroxybutyrate q. 12 hours 7. Keep NPO for now. No indications for GI prophylaxis. 8. Continue with insulin drip per diabetic ketoacidosis protocol. 9. She is currently on normal saline at 250 mL/hour. Once blood sugar falls to less than 250, will change the IV fluids to D5 normal saline at 200 mL/hour. 10. Thyroid studies performed in the emergency department are likely related to primary hyperthyroidism. Her TSH was less than 0.005 with a free T4 of 3.47 and total T3 of 220. 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 Will repeat a thyroid panel. In addition, will check thyroid peroxidase antibodies and autoantibodies. Will also check ultrasound of the thyroid gland. Will hold off on starting anti-thyroid agent such as Methimazole or PTU for now as the patient is currently breast feeding. 11. Monitor for signs of infection, which include fever and WBCs. Will hold off on antibiotics at this time as there are no signs of any infectious process. 12. No indications for GI prophylaxis and DVT prophylaxis with SCDs. Further recommendations will be based on the hospital course. MD WESLEY Lopez/VALENTINE /1:33 PM /1:48 PM DANILO
--- NOTE | 2017-03-30 14:58 | EKG ---
Date Performed: 03/30/2017 Time Performed: 02:55:32 PTAGE: 31 years EKG: Supraventricular tachycardia, suspect this is sinus tachycardia Prolonged corrected QT inte rval POSSIBLE RIGHT VENTRICULAR CONDUCTION DELAY NONSPECIFIC T-WAVE ABNORMALITY ABNORMAL RHYTHM ECG NO PREVIOUS TRACING DOCTOR: Gil Lilly Interpretating Date/Time 03/30/2017 14:56:52
--- NOTE | 2017-03-30 15:29 | RADRPT ---
EXAM DATE/TIME: 03/30/2017 14:27 [place] COMPARISON: No previous studies available for comparison. INDICATIONS : Thyroid nodule. MEDICAL HISTORY : Diabetes mellitus type 1. Brain tumor. SURGICAL HISTORY : section. Brain surgery. ENCOUNTER: Initial ACUITY: 1 day PAIN SCORE: 0/10 LOCATION: Bilateral neck MEASUREMENTS: RIGHT LOBE: 4.6 x 1.4 x 2.1 cm LEFT LOBE: 4.7 x 1.7 x 1.7 cm FINDINGS: RIGHT LOBE: Heterogeneous echotexture without nodules or cysts except for small 5 x 4 x 7 mm nodule. Vascularity is within normal limits. LEFT LOBE: Heterogeneous echotexture without cysts. 2 small nodules both measuring 6 mm across, one in the lower pole one in the midpole Vascularity is within normal limits. ISTHMUS: Normal in size with a solitary nodule measuring 5 x 4 mm. CONCLUSION: Mildly heterogeneous lobes with a few small nodules. No dominant or concerning nodule identified. Bob Ortez MD on March 30, 2017 at 15:26 Board Certified Radiologist. This report was verified electronically.
[2017-03-30 16:52] LABS: BICARBONATE 14.7 MEQ/L (21.0-32.0); CALCIUM 8.1 MG/DL (8.5-10.1); CREATININE 0.46 MG/DL (0.50-1.00); MAGNESIUM 1.5 MG/DL (1.5-2.5); PHOSPHORUS 3.2 MG/DL (2.5-4.9)
[2017-03-30] MEDS ORDERED: METOPROLOL TARTRATE 5 MG/5 ML VIAL ONE (18:20)
[2017-03-30] MEDS ORDERED: METOPROLOL TARTRATE 5 MG/5 ML VIAL IV PUSH ONE (18:20)
[2017-03-30] MEDS: METOPROLOL TARTRATE 25 MG TAB PO SCH (21:49)
[2017-03-30] MEDS: SODIUM CHLOR 0.9% 1000 ML INJ 1,000 ML IV SCH ×2 (22:13→23:57)
[2017-03-30 22:17] LABS: CALCIUM 8.9 MG/DL (8.5-10.1); CREATININE 0.49 MG/DL (0.50-1.00); MAGNESIUM 1.6 MG/DL (1.5-2.5); PHOSPHORUS 3.7 MG/DL (2.5-4.9)
[2017-03-30] MEDS: POTASSIUM CHLOR 20 MEQ PREMIX 100 ML IV PRN (23:56)
[2017-03-31] VITALS (12 sets, daily range): BP systolic 101–124; BP diastolic 60–73; PULSE 91–103; RESP 17–30; TEMP 98.2–98.9; O2SAT 98–100
[2017-03-31] MEDS: DEXT 5%-NACL 0.9% 1000 ML INJ 1,000 ML IV SCH ×3 (01:13→08:33)
[2017-03-31] MEDS: POTASSIUM CHLOR 20 MEQ PREMIX 100 ML IV PRN ×3 (02:00→06:17)
[2017-03-31 03:46] LABS: AUTOMATED NEUTROPHIL # 3.4 TH/MM3 (1.8-7.7); BASOPHIL % 0.5 % (0.0-2.0); EOSINOPHIL # 0.1 TH/MM3 (0-0.4); EOSINOPHIL % 0.8 % (0.0-4.0); HEMATOCRIT 33.4 % (35.0-46.0); HEMOGLOBIN 11.3 GM/DL (11.6-15.3); LYMPH % 38.1 % (9.0-44.0); LYMPHOCYTE # 2.7 TH/MM3 (1.0-4.8); MEAN CELL VOLUME 80.8 FL (80.0-100.0); MEAN CORPUSCULAR HEMOGLOBIN 27.4 PG (27.0-34.0); MEAN CORPUSCULAR HGB CONC 33.9 % (32.0-36.0); MEAN PLATELET VOLUME 6.9 FL (7.0-11.0); MONO % 11.9 % (0.0-8.0); MONOCYTE # 0.8 TH/MM3 (0-0.9); NEUT % 48.7 % (16.0-70.0); PLATELET COUNT 266 TH/MM3 (150-450); RED BLOOD COUNT 4.13 MIL/MM3 (4.00-5.30); WHITE BLOOD COUNT 7.1 TH/MM3 (4.0-11.0)
[2017-03-31] MEDS: CHLORHEXIDINE GLUCONATE 2 % 1 PACK (2 CLOTHS) TOP SCH (04:00)
[2017-03-31] MEDS ORDERED: CHLORHEXIDINE GLUCONATE 2 % 1 PACK (2 CLOTHS) TOP SCH (04:00)
[2017-03-31 04:10] LABS: BICARBONATE 19.2 MEQ/L (21.0-32.0); BLOOD UREA NITROGEN 8 MG/DL (7-18); CALCIUM 8.4 MG/DL (8.5-10.1); CHLORIDE 114 MEQ/L (98-107); CREATININE 0.48 MG/DL (0.50-1.00); GLOMERULAR FILTRATION RATE 152 ML/MIN (>89); GLUCOSE,RANDOM 137 MG/DL (74-106); MAGNESIUM 1.7 MG/DL (1.5-2.5); SODIUM (NA) 142 MEQ/L (136-145)
[2017-03-31] MEDS: SODIUM CHLOR 0.9% 1000 ML INJ 1,000 ML IV SCH (04:58)
[2017-03-31] MEDS: METOPROLOL TARTRATE 25 MG TAB PO SCH (08:33)
--- NOTE | 2017-03-31 10:40 | HHI.CCPN ---
Subjective Remarks/Hospital Course Patient is a 31-year-old female with past medical history of type 1 diabetes mellitus diagnosed twenty years ago and has an insulin pump who presented to the [facility] Emergency Department with elevated blood sugar and emesis. The patient states that she had persistently high blood sugar of greater than 500 . On arrival to the emergency department, she was tachycardic and tachypneic. ABG was performed, which showed severe metabolic acidosis with a pH of 7.16, C02 22, bicarbonate 8, saturation 95%. Her laboratory data showed a blood sugar of 426 on the Basic metabolic profile and a lactic acid level of 4.0. In the emergency department, she was given 4 liters of normal saline and regular insulin 10 units IV push x1. On further history, she reports being anxious and palpitations intermittently for a long time. The patient was last admitted for diabetic ketoacidosis five years ago. She denies any nausea or vomiting or abdominal pain. Patient recently delivered twins five months ago. 03/31 Patient is off insulin drip. AG closed 8. Awake and alert. Objective Vital Signs Date Time Temp Pulse Resp B/P (MAP) Pulse Ox O2 Delivery O2 Flow Rate FiO2 03/31/17 08:00 98.4 97 18 102/60 (74) 99 03/30/17 07:15 Room Air Intake and Output 03/31/17 03/31/17 04/01/17 08:00 16:00 00:00 Intake Total 1640 ml Balance 1640 ml Result Diagram: 03/31/17 0335 03/31/17 0335 Other Results Laboratory Tests Test 03/30/17 15:48 03/30/17 19:57 03/30/17 20:55 03/31/17 03:35 Blood Urea Nitrogen 10 MG/DL 9 MG/DL 8 MG/DL Creatinine 0.46 MG/DL 0.49 MG/DL 0.48 MG/DL Random Glucose 184 MG/DL 99 MG/DL 137 MG/DL Calcium Level 8.1 MG/DL 8.9 MG/DL 8.4 MG/DL Phosphorus Level 3.2 MG/DL 3.7 MG/DL 3.0 MG/DL Magnesium Level 1.5 MG/DL 1.6 MG/DL 1.7 MG/DL Sodium Level 141 MEQ/L 142 MEQ/L 142 MEQ/L Potassium Level 4.0 MEQ/L 4.1 MEQ/L 4.2 MEQ/L Chloride Level 113 MEQ/L 113 MEQ/L 114 MEQ/L Carbon Dioxide Level 14.7 MEQ/L 12.0 MEQ/L 19.2 MEQ/L Anion Gap 13 MEQ/L 17 MEQ/L 9 MEQ/L Estimat Glomerular Filtration Rate 159 ML/MIN 148 ML/MIN 152 ML/MIN Blood Gas Puncture Site RT RADIAL Blood Gas Patient Temperature 98.6 Blood Gas HCO3 11 mmol/L Blood Gas Base Excess -15.1 mmol/L Blood Gas Oxygen Saturation 87 % Arterial Blood pH 7.25 Arterial Blood Partial Pressure CO2 25 mmHg Arterial Blood Partial Pressure O2 60 mmHg Arterial Blood Oxygen Content 14.0 Vol % Arterial Blood Carboxyhemoglobin 1.3 % Arterial Blood Methemoglobin 1.4 % Blood Gas Hemoglobin 11.5 G/DL Oxygen Delivery Device ROOM AIR Blood Gas Inspired Oxygen 21 % B-Hydroxybutyrate 6.46 MMOL/L White Blood Count 7.1 TH/MM3 Red Blood Count 4.13 MIL/MM3 Hemoglobin 11.3 GM/DL Hematocrit 33.4 % Mean Corpuscular Volume 80.8 FL Mean Corpuscular Hemoglobin 27.4 PG Mean Corpuscular Hemoglobin Concent 33.9 % Red Cell Distribution Width 13.0 % Platelet Count 266 TH/MM3 Mean Platelet Volume 6.9 FL Neutrophils (%) (Auto) 48.7 % Lymphocytes (%) (Auto) 38.1 % Monocytes (%) (Auto) 11.9 % Eosinophils (%) (Auto) 0.8 % Basophils (%) (Auto) 0.5 % Neutrophils # (Auto) 3.4 TH/MM3 Lymphocytes # (Auto) 2.7 TH/MM3 Monocytes # (Auto) 0.8 TH/MM3 Eosinophils # (Auto) 0.1 TH/MM3 Basophils # (Auto) 0.0 TH/MM3 CBC Comment DIFF FINAL Differential Comment Free Thyroxine 3.40 NG/DL Total Triiodothyronine 189 NG/DL Thyroid Stimulating Hormone 3rd Gen LESS THAN 0.005 uIU/ML Imaging Last Impressions Thyroid Ultrasound 03/30/17 0000 Signed Impressions: Service Date/Time: Thursday, March 30, 2017 14:27 - CONCLUSION: Mildly heterogeneous lobes with a few small nodules. No dominant or concerning nodule identified. Bob Ortez MD Objective Remarks GENERAL: Patient is 31 yo lying in bed in NAD SKIN: Warm and dry. HEAD: Normocephalic. EYES: No scleral icterus. No injection or drainage. NECK: Supple, trachea midline. No JVD or lymphadenopathy. CARDIOVASCULAR: Regular rate and rhythm without murmurs, gallops, or rubs. RESPIRATORY: Breath sounds equal bilaterally. No accessory muscle use. GASTROINTESTINAL: Abdomen soft, non-tender, nondistended. MUSCULOSKELETAL: No cyanosis, or edema. Neuro: Awake and alert A/P Assessment and Plan 1. Diabetic ketoacidosis...Resolved 2. Lactic acidemia, resolved. 3. History of type 1 diabetes mellitus on insulin pump. 4. Intractable nausea and vomiting. 5. Atrial tachycardia. 6. ? primary hypothyroidism. 7. Anxiety disorder by history. Plan Neuro: Awake and alert Pulm: Oxygen PRN to maintain saturations above 92%. CV: Continue with Lopressor 12.5mg BID. Monitor HR and BP maintain MAP>65 mmHg. lactic acid measures 0.8 from 4.0. For 2D echo to eval LV function : Monitor renal function, intake and output and electrolyte replacement per protocol. GI: On PO diabetic diet. No indications for GI prophylaxis. Endo: Will transition from insulin drip to SSI, patient is using her insulin pump. TSH <0.005 with a free T4 of 3.40, total T3 of 189. Follow up on thyroid peroxidase antibodies and autoantibodies. Thyroid US showed few thyroid nodules. Patient is being follow up with Document [facility]ist in [place] Recommended to follow up with him in 1 week upon discharge ID: Monitor for signs of infections( fever and WBC) Heme: Monitor CBC No indications for GI prophylaxis and DVT prophylaxis with SCDs. Will sign off and transfer care to [facility] Level 2 Cheo Crowder MD Mar 31, 2017 10:40
[2017-03-31] MEDS ORDERED: DEXTROSE 50% IN WATER 50 ML VIAL(D50) IV PUSH PRN (14:45)
[2017-03-31] MEDS ORDERED: GLUCAGON 1 MG/ML VIAL OTHER PRN (14:45)
[2017-03-31] MEDS ORDERED: PILL SPLITTER OTHER PRN (15:00)
[2017-03-31 16:54] LABS: BICARBONATE 23.4 MEQ/L (21.0-32.0); CALCIUM 9.1 MG/DL (8.5-10.1); CREATININE 0.59 MG/DL (0.50-1.00)
[2017-03-31] MEDS: INSULIN NovoLIN REGULAR SUPPLEMENTAL SCALE SQ SCH (19:04)
[2017-03-31] MEDS ORDERED: METOPROLOL TARTRATE 25 MG TAB PO SCH (21:00)
[2017-04-01] VITALS: BP 109/58; PULSE 102; RESP 24; TEMP 98.3; O2SAT 99
[2017-04-01] MEDS: INSULIN NovoLIN REGULAR SUPPLEMENTAL SCALE SQ SCH ×2 (00:43→04:00)
[2017-04-01 02:00] VITALS: PULSE 91
[2017-04-01 04:00] VITALS: BP 125/73; PULSE 100; RESP 19; TEMP 98.4; O2SAT 98
[2017-04-01] MEDS: CHLORHEXIDINE GLUCONATE 2 % 1 PACK (2 CLOTHS) TOP SCH (04:00)
[2017-04-01 05:02] LABS: AUTOMATED NEUTROPHIL # 2.3 TH/MM3 (1.8-7.7); BASOPHIL % 0.4 % (0.0-2.0); EOSINOPHIL # 0.2 TH/MM3 (0-0.4); EOSINOPHIL % 3.5 % (0.0-4.0); HEMATOCRIT 38.5 % (35.0-46.0); HEMOGLOBIN 13.2 GM/DL (11.6-15.3); LYMPH % 42.6 % (9.0-44.0); LYMPHOCYTE # 2.3 TH/MM3 (1.0-4.8); MEAN CELL VOLUME 80.8 FL (80.0-100.0); MEAN CORPUSCULAR HEMOGLOBIN 27.8 PG (27.0-34.0); MEAN CORPUSCULAR HGB CONC 34.4 % (32.0-36.0); MEAN PLATELET VOLUME 7.1 FL (7.0-11.0); MONO % 10.9 % (0.0-8.0); MONOCYTE # 0.6 TH/MM3 (0-0.9); NEUT % 42.6 % (16.0-70.0); PLATELET COUNT 276 TH/MM3 (150-450); RED BLOOD COUNT 4.76 MIL/MM3 (4.00-5.30); RED CELL DISTRIBUTION WIDTH 13.2 % (11.6-17.2); WHITE BLOOD COUNT 5.5 TH/MM3 (4.0-11.0)
[2017-04-01 05:21] LABS: ALBUMIN 2.9 GM/DL (3.4-5.0); ALKALINE PHOSPHATASE 120 U/L (45-117); ALT (GPT) 44 U/L (10-53); AST (GOT) 20 U/L (15-37); BICARBONATE 23.7 MEQ/L (21.0-32.0); BLOOD UREA NITROGEN 16 MG/DL (7-18); CALCIUM 9.1 MG/DL (8.5-10.1); CHLORIDE 113 MEQ/L (98-107); CREATININE 0.41 MG/DL (0.50-1.00); GLOMERULAR FILTRATION RATE 182 ML/MIN (>89); GLUCOSE,RANDOM 106 MG/DL (74-106); MAGNESIUM 1.9 MG/DL (1.5-2.5); PHOSPHORUS 4.3 MG/DL (2.5-4.9); SODIUM (NA) 146 MEQ/L (136-145); TOTAL BILIRUBIN ADULT 0.4 MG/DL (0.2-1.0); TOTAL PROTEIN 6.1 GM/DL (6.4-8.2)
[2017-04-01 06:00] VITALS: PULSE 90
[2017-04-01] MEDS ORDERED: 1/2 NS + KCL 20 MEQ INJ 1,000 ML IV SCH (07:45)
[2017-04-01 08:00] VITALS: BP 115/70; PULSE 102; RESP 17; TEMP 98.8; O2SAT 99
[2017-04-01] MEDS ORDERED: INSULIN DETEMIR 100 UNITS/ML VIAL SQ SCH ×2 (08:00→09:00)
[2017-04-01] MEDS ORDERED: INSULIN ASPART SUPPLEMENTAL SCALE SQ SCH (08:00)
[2017-04-01] MEDS ORDERED: POTASSIUM CHLORIDE 10 MEQ CONTROLLED RELEASE TAB PO ONE (08:30)
[2017-04-01] MEDS: METHIMAZOLE 10 MG TAB PO SCH ×2 (09:28→13:37)
[2017-04-01] MEDS ORDERED: SODIUM CHLORIDE 23.4% INJ 38.5 MEQ in WATER STERILE FOR INJ 1,000 ML IV SCH (11:00)
[2017-04-01 12:00] VITALS: BP 118/76; PULSE 95; RESP 16; TEMP 98.5; O2SAT 99
[2017-04-01] MEDS ORDERED: METH5TAB4 PO (13:33)
[2017-04-01] MEDS ORDERED: METO25TA3 PO (13:33)
--- NOTE | 2017-04-01 13:40 | HHI.PR ---
Subjective Remarks Patient is a 31-year-old female with past medical history of type 1 diabetes mellitus diagnosed twenty years ago and has an insulin pump who presented to the [facility] Emergency Department with elevated blood sugar and emesis. The patient states that she had persistently high blood sugar of greater than 500 . On arrival to the emergency department, she was tachycardic and tachypneic. ABG was performed, which showed severe metabolic acidosis with a pH of 7.16, C02 22, bicarbonate 8, saturation 95%. Her laboratory data showed a blood sugar of 426 on the Basic metabolic profile and a lactic acid level of 4.0. In the emergency department, she was given 4 liters of normal saline and regular insulin 10 units IV push x1. On further history, she reports being anxious and palpitations intermittently for a long time. The patient was last admitted for diabetic ketoacidosis five years ago. She denies any nausea or vomiting or abdominal pain. Patient recently delivered twins five months ago. 03/31 Patient is off insulin drip. AG closed 8. Awake and alert. = 04/01. Patient says she feels all right. Denies any chest pain or shortness of breath. Denies any nausea or vomiting. Says she feels like going home. She does report poor compliance with mealtime bolusing at home, did not want to go below 200 because she was afraid of being hypoglycemic at home. She says she will be more compliant in the future, plans to continue current regimen after discharge. Objective Vital Signs Date Time Temp Pulse Resp B/P (MAP) Pulse Ox O2 Delivery O2 Flow Rate FiO2 04/01/17 12:00 98.5 95 16 118/76 (90) 99 04/01/17 08:00 102 04/01/17 08:00 98.8 102 17 115/70 (85) 99 04/01/17 06:00 90 04/01/17 04:00 98.4 100 19 125/73 (90) 98 04/01/17 04:00 100 04/01/17 02:00 91 04/01/17 00:00 98.3 102 24 109/58 (75) 99 04/01/17 00:00 102 03/31/17 22:00 97 03/31/17 20:00 101 03/31/17 20:00 98.2 101 30 124/73 (90) 03/31/17 18:00 97 03/31/17 16:00 98.4 91 17 122/71 (88) 99 03/31/17 16:00 92 03/31/17 14:00 93 I/O 03/31/17 03/31/17 03/31/17 04/01/17 04/01/17 04/01/17 07:00 15:00 23:00 07:00 15:00 23:00 Intake Total 2260 ml 1400 ml 500 ml Balance 2260 ml 1400 ml 500 ml Intake Oral 240 ml 1400 ml 500 ml IV Total 2020 ml # Voids 4 4 2 # Bowel Movements 0 0 Result Diagram: 04/01/1740404/01/17404 Objective Remarks GENERAL: Patient sitting up in bed. Appears comfortable. Alert and oriented 4. SKIN: Warm and dry. HEAD: Normocephalic. EYES: No scleral icterus. No injection or drainage. NECK: Supple, trachea midline. No JVD. CARDIOVASCULAR: Regular rate and rhythm without murmurs, gallops, or rubs. RESPIRATORY: Breath sounds equal bilaterally. No accessory muscle use. GASTROINTESTINAL: Abdomen soft, non-tender, nondistended. MUSCULOSKELETAL: No cyanosis, or edema. BACK: Nontender without obvious deformity. No CVA tenderness. A/P Assessment and Plan // Diabetic ketoacidosis...Resolved //History of type 1 diabetes mellitus on insulin pump. = She reports noncompliance with home regimen due to fear of hypoglycemia. She is back on her insulin pump. We will monitor today, and if glucose acceptable, discharges afternoon. //Hypernatremia 146. Could be lab error. Off IV fluids. Recheck this afternoon. // Lactic acidemia, resolved. //Intractable nausea and vomiting.resolved. //Atrial tachycardia. = Continue beta jaguar. // primary hypothyroidism. = Thyroid ultrasound with some small nodules but none concerning for malignancy. We will follow-up with her senior mechanical development engineer as outpatient. We will start her on methimazole, which will need to be adjusted by senior mechanical development engineer. // Anxiety disorder by history. = Discussed with patient today. Likely recent anxiety secondary to hyperthyroid state. Expect to improve with treatment. Discharge Planning This sodium okay this afternoon, glucose controlled, discharge home as afternoon Ralf Linder MD Apr 01, 2017 13:40
[2017-04-01] MEDS ORDERED: THIAMINE HCL 100 MG TAB PO ONE (14:30)
[2017-04-01 15:17] LABS: BICARBONATE 25.9 MEQ/L (21.0-32.0); CREATININE 0.66 MG/DL (0.50-1.00)
--- NOTE | 2017-04-01 18:24 | HHI.DS ---
Discharge Summary Admission Date Mar 30, 2017 at 08:18 Discharge Date: Apr 01, 2017 Admitting Diagnosis Diabetic Ketoacidosis (1) Thyrotoxicosis without thyroid storm ICD Code: E05.90 - Thyrotoxicosis, unspecified without thyrotoxic crisis or storm (2) Diabetes mellitus ICD Code: E11.9 - Type 2 diabetes mellitus without complications Procedures No invasive procedures. Brief History - From Admission Patient is a 31-year-old female with past medical history of type 1 diabetes mellitus diagnosed twenty years ago and has an insulin pump who presented to the [facility] Emergency Department with elevated blood sugar and emesis. The patient states that she had persistently high blood sugar of greater than 500 . On arrival to the emergency department, she was tachycardic and tachypneic. ABG was performed, which showed severe metabolic acidosis with a pH of 7.16, C02 22, bicarbonate 8, saturation 95%. Her laboratory data showed a blood sugar of 426 on the Basic metabolic profile and a lactic acid level of 4.0. In the emergency department, she was given 4 liters of normal saline and regular insulin 10 units IV push x1. On further history, she reports being anxious and palpitations intermittently for a long time. The patient was last admitted for diabetic ketoacidosis five years ago. She denies any nausea or vomiting or abdominal pain. Patient recently delivered twins five months ago. CBC/BMP: 04/01/17 0405 04/01/17 1445 Significant Findings Laboratory Tests Test 03/30/17 03:05 03/30/17 03:15 03/30/17 04:20 03/30/17 06:10 Monocytes (%) (Auto) 13.1 % (0.0-8.0) Monocytes # (Auto) 1.3 TH/MM3 (0-0.9) Venous Blood pH 7.19 (7.360-7.400) Venous Blood Partial Pressure CO2 27 mmHg (44-48) Venous Blood Partial Pressure O2 85 mmHg (35-40) Venous Blood HCO3 10 mmol/L (22-26) Venous Blood Oxygen Saturation 92 % (70-76) Venous Blood Oxygen Content 17.1 Vol % (9.0-17.0) Venous Blood Base Excess -16.6 mmol/L (-2-2) Blood Urea Nitrogen 20 MG/DL (7-18) Random Glucose 426 MG/DL (74-106) 231 MG/DL (74-106) Phosphorus Level 7.2 MG/DL (2.5-4.9) Alkaline Phosphatase 159 U/L (45-117) Sodium Level 135 MEQ/L (136-145) Carbon Dioxide Level 12.7 MEQ/L (21.0-32.0) 12.2 MEQ/L (21.0-32.0) Anion Gap 21 MEQ/L (5-15) Estimat Glomerular Filtration Rate 80 ML/MIN (>89) B-Hydroxybutyrate 5.13 MMOL/L (0.00-0.39) Lactic Acid Level 4.0 mmol/L (0.4-2.0) Urine Protein 30 mg/dL (NEG-TRACE) Urine Glucose (UA) 1000 mg/dL (NEG) Urine Ketones 150 mg/dL (NEG) Urine Mucus FEW /lpf (OCC) Creatinine 0.40 MG/DL (0.50-1.00) Calcium Level 7.8 MG/DL (8.5-10.1) Chloride Level 113 MEQ/L (98-107) Free Thyroxine 3.47 NG/DL (0.76-1.46) Thyroid Stimulating Hormone 3rd Gen LESS THAN 0.005 uIU/ML Test 03/30/17 07:55 03/30/17 08:11 03/30/17 15:48 03/30/17 19:57 Blood Gas HCO3 8 mmol/L (22-26) 11 mmol/L (22-26) Blood Gas Base Excess -19.4 mmol/L (-2-2) -15.1 mmol/L (-2-2) Arterial Blood pH 7.16 (7.380-7.420) 7.25 (7.380-7.420) Arterial Blood Partial Pressure CO2 22 mmHg (38-42) 25 mmHg (38-42) Total Triiodothyronine 220 NG/DL (60-181) Creatinine 0.46 MG/DL (0.50-1.00) Random Glucose 184 MG/DL (74-106) Calcium Level 8.1 MG/DL (8.5-10.1) Chloride Level 113 MEQ/L (98-107) Carbon Dioxide Level 14.7 MEQ/L (21.0-32.0) Blood Gas Oxygen Saturation 87 % (90-100) Arterial Blood Partial Pressure O2 60 mmHg (61-120) Blood Gas Hemoglobin 11.5 G/DL (12.0-16.0) Test 03/30/17 20:55 03/31/17 03:35 03/31/17 15:31 04/01/17 04:05 Creatinine 0.49 MG/DL (0.50-1.00) 0.48 MG/DL (0.50-1.00) 0.41 MG/DL (0.50-1.00) Chloride Level 113 MEQ/L (98-107) 114 MEQ/L (98-107) 110 MEQ/L (98-107) 113 MEQ/L (98-107) Carbon Dioxide Level 12.0 MEQ/L (21.0-32.0) 19.2 MEQ/L (21.0-32.0) Anion Gap 17 MEQ/L (5-15) B-Hydroxybutyrate 6.46 MMOL/L (0.00-0.39) 0.70 MMOL/L (0.00-0.39) Hemoglobin 11.3 GM/DL (11.6-15.3) Hematocrit 33.4 % (35.0-46.0) Mean Platelet Volume 6.9 FL (7.0-11.0) Monocytes (%) (Auto) 11.9 % (0.0-8.0) 10.9 % (0.0-8.0) Random Glucose 137 MG/DL (74-106) 190 MG/DL (74-106) Calcium Level 8.4 MG/DL (8.5-10.1) Free Thyroxine 3.40 NG/DL (0.76-1.46) Total Triiodothyronine 189 NG/DL (60-181) Thyroid Stimulating Hormone 3rd Gen LESS THAN 0.005 uIU/ML Total Protein 6.1 GM/DL (6.4-8.2) Albumin 2.9 GM/DL (3.4-5.0) Alkaline Phosphatase 120 U/L (45-117) Sodium Level 146 MEQ/L (136-145) Potassium Level 3.3 MEQ/L (3.5-5.1) Test 04/01/17 14:45 Random Glucose 358 MG/DL (74-106) Imaging Last Impressions Thyroid Ultrasound 03/30/17 0000 Signed Impressions: Service Date/Time: Thursday, March 30, 2017 14:27 - CONCLUSION: Mildly heterogeneous lobes with a few small nodules. No dominant or concerning nodule identified. Bob Ortez MD Hospital Course // Diabetic ketoacidosis...Resolved //History of type 1 diabetes mellitus on insulin pump. = She reports noncompliance with home regimen due to fear of hypoglycemia. She is back on her insulin pump. We will monitor today, and if glucose acceptable, discharges afternoon. //Hypernatremia 146. Could be lab error. Off IV fluids. Recheck this afternoon. // Lactic acidemia, resolved. //Intractable nausea and vomiting.resolved. //Atrial tachycardia. = Continue beta jaguar. // primary hypothyroidism. = Thyroid ultrasound with some small nodules but none concerning for malignancy. We will follow-up with her physician office clin asst as outpatient. We will start her on methimazole, which will need to be adjusted by physician office clin asst. // Anxiety disorder by history. = Discussed with patient today. Likely recent anxiety secondary to hyperthyroid state. Expect to improve with treatment. Discharge Planning This sodium okay this afternoon, glucose controlled, discharge home as afternoon Pt Condition on Discharge: Good Discharge Disposition: Discharge Home Discharge Time: > 30 minutes Discharge Instructions DIET: Follow Instructions for: Diabetic Diet Activities you can perform: Regular-No Restrictions Follow up Referrals: Endocrinology - 1 Week PCP Follow-up - 2-3 Days with Vida Henry MD New Medications: Methimazole (Methimazole) 5 Mg Tab 5 MG PO TID for Thyroid, #90 TAB 0 Refills Metoprolol Tartrate (Metoprolol Tartrate) 25 Mg Tab 12.5 MG PO Q12HR for Fast heart rate for 30 Days, TAB Continued Medications: [insulin pump] () 1 UNIT SQ q1hr PRN for days [insulin pump] () 0.8 UNITS SQ hourly at night Ralf Linder MD Apr 01, 2017 18:24
[2017-04-02 19:53] LABS: THYROID PEROX AB (MICROSOMAL) 327 IU/mL (<9)
[2017-04-02 23:51] LABS: THYROGLOB ABS LESS THAN 1 IU/mL (< OR = 1)
== END 2017-04-01 16:25 | disposition home or self-care (01) | DRG 638 ==
LOC: NEPC 02:31 → NEDA 08:18 → HIME 10:00
PROVIDERS: ADMIT Internal Medicine; ATTEND Internal Medicine
DX: E10.10 Type 1 diabetes mellitus with ketoacidosis without coma (principal); I47.1 Supraventricular tachycardia; F06.4 Anxiety disorder due to known physiological condition; E03.9 Hypothyroidism, unspecified; Z96.41 Presence of insulin pump (external) (internal); Z79.4 Long term (current) use of insulin; Z86.011 Personal history of benign neoplasm of the brain; Z91.19 Patient's noncompliance with other medical treatment and regimen
CPT/HCPCS: 36600; 76536; 80048; 80053; 80307; 81001; 82010; 82805; 82948; 83605; 83690; 83735; 84100; 84439; 84443; 84480; 84702; 85025; 85379; 86376; 86800; 93005; 96361; 96374; 96376; J1815; J1817; J3480; J7030; J7042; J7070